=== PATIENT | male | born 1990 | race Caucasian/White ===

== ENCOUNTER 2021-08-05 07:38 | Emergency (ER) | payer MEDICAID, SELFPAY ==
[2021-08-05 08:09] VITALS: BP 122/79; PULSE 104; RESP 20; TEMP 37.5; O2SAT 100; BMI 39.3
--- NOTE | 2021-08-05 08:37 | ED_ITS ---
HPI - Nausea/Vomiting/Diarrhea General Chief complaint: Nausea/Vomiting/Diarrhea Stated complaint: vomiting diarrhea Time Seen by Provider: 08/05/21 08:13 Source: patient Mode of arrival: ambulatory Limitations: no limitations History of Present Illness HPI Narrative: 31-year-old male previously healthy here with reports of vomiting and diarrhea with associated abdominal cramping since last evening. Patient denies any fevers, chills, urinary symptoms, shortness of breath, chest pain. Patient has received COVID vaccine x2. He is not vaccinated for flu. No recent sick contacts, no recent travel. Associated nausea: Yes Related Data Previous Rx's Medication Instructions Recorded dicyclomine 10 mg capsule 10 mg PO TID PRN #15 cap 08/05/21 ondansetron 4 mg disintegrating 4 mg PO Q6H PRN #10 tab 08/05/21 tablet Allergies Allergy/AdvReac Type Severity Reaction Status Date / Time No Known Allergies Allergy Verified 08/05/21 08:14 Review of Systems Review of Systems: Yes all other systems are reviewed and are negative Constitutional: Constitutional: Reports no additional constitutional complaints, Denies body ache(s), Denies chills, Denies fever(s), Denies headache(s) and Denies weakness Eyes: Eyes: Reports no additional eye complaints and Denies change in vision ENT: Reports system reviewed and no additional complaints, except as documented, Denies dizziness, Denies headache(s), Denies nasal congestion, Denies nasal discharge and Denies neck pain Cardiovascular: Cardiovascular: Reports no additional cardiovascular complaints, Denies chest pain, Denies leg edema and Denies dyspnea Respiratory: Respiratory: Reports no additional respiratory complaints, Denies cough and Denies dyspnea Gastrointestinal: Gastrointestinal: Reports no additional gastrointestinal complaints, Reports abdominal pain, Reports diarrhea, Reports nausea and Reports vomiting Genitourinary: Genitourinary: Denies urinary incontinence Musculoskeletal: Musculoskeletal: Reports no additional musculoskeletal complaints, Denies back pain, Denies arthralgias, Denies joint swelling, Denies neck pain, Denies numbness and Denies tingling Integumentary/Breasts: Skin/Breast: Reports system reviewed and no additional complaints, except as docu and Denies rash Neurologic: Reports system reviewed and no additional complaints, except as documented, Denies Abnormal speech present, Denies dizziness, Denies headache(s), Denies numbness, Denies tingling and Denies weakness PMFSH Past Medical History Attestation statement: The following information was validated with the patient. Source: old records reviewed and nursing notes reviewed Medical History No known health problems Social History Social History Advance Directives: No Advance Directives Information Provided: No Physical Exam Vital Signs: Vital Signs: Last Vital Signs Temp 99.5 F 08/05/21 08:09 Pulse 104 H 08/05/21 08:09 Resp 20 08/05/21 08:09 BP 122/79 08/05/21 08:09 Pulse Ox 100 08/05/21 08:09 BMI result Body Mass Index 39.3 Const: General: cooperative, healthy appearing, comfortable and no acute distress Orientation/consciousness: patient oriented x3 Limitations: no limitations HEENT: Head: Yes normal to inspection Ears: hearing grossly normal bilaterally General nose exam: Normal external nose present Face and sin us: Yes normal facial exam Mouth: Normal oral and palatal mucosa present Throat: Yes posterior oropharynx normal Eyes: General: appearance normal, both eyes and all related structures Pupils: Equal, round and reactive pupils present Neck: Neck: Yes normal visual inspection, Yes full ROM, Yes no lymphadenopathy and Yes no meningeal signs Chest: Chest palpation & inspection: normal inspection of the chest Resp: Effort & Inspection: normal respiratory effort Auscultation: clear to auscultation bilaterally Cardio: Rate: regular rate Rhythm: regular rhythm Peripheral pulses: Peripheral pulses 2+ throughout GI: Inspection: Yes normal to inspection Palpation (GI): Soft to palpation and nontender Auscultation: normal bowel sounds Back/Spine/Pelvis: Thoracic/Lumbar Spine: thoracic and lumbar spine normal to inspection Skin: General skin exam: no rashes or lesions noted Neuro: General: patient oriented x3, no meningeal signs, no focal motor deficits and normal sensation to monofilament Cranial nerves: Yes Equal, round and reactive pupils present Cognition (Neuro): normal cognition Speech: No Abnormal speech present Gait exam (Neuro): Normal gait present Motor exam (neuro): 5/5 motor strength present throughout Extrem: General: Yes normal to inspection Course Course Course Narrative: 31-year-old male here with reports of vomiting and diarrhea with associated abdominal cramping since last evening. No focal abdominal pain on exam. Vitals are stable Patient reports inability to tolerate p.o.. Will check labs, UA, flu and COVID testing. Will give IV fluids, antiemetic and pain control and reassess 1000-Labs are unremarkable. FLU and COVID testing. Patient feeling improved. Tolerating PO. Likely viral gastroenteritis. Plan for discharge home. Reviewed worrisome signs and symptoms of when to return to the emergency department. Comfortable discharge home. MDM - Nausea/Vomiting/Diarrhea Medical Records Attestation: I reviewed the patient's medical records. Lab Data Attestation: I reviewed the patient's lab results. Result diagrams: 08/05/21 08:42 08/05/21 08:42 Labs: Lab Results 08/05/21 08/05/21 08/05/21 Range/Units 08:42 08:42 08:44 WBC 11.9 H (4.8-10.8) X10*3/uL RBC 5.02 (4.60-5.80) X10*6/uL Hgb 14.6 (14.0-18.0) g/dl Hct 42.8 (42.0-52.0) % MCV 85.3 (80.0-98.0) fL MCH 29.1 (27.0-33.0) pg MCHC 34.1 (31.0-36.0) g/dl RDW 12.3 (11.0-16.0) % Plt Count 206 (160-400) X10*3/uL MPV 9.3 L (9.4-12.4) fL Immature Gran % (Auto) 0.4 (0.0-0.4) % Neut % (Auto) 90.8 H (45-73) % Lymph % (Auto) 3.0 L (20-40) % [place] % (Auto) 5.3 (2-11) % Eos % (Auto) 0.4 (0-4) % Baso % (Auto) 0.1 (0-2) % Lymph # (Auto) 0.4 L (1.2-4.9) X10*3/uL [place] # (Auto) 0.6 (0.1-1.2) X10*3/uL Eos # (Auto) 0.1 (0.0-0.4) X10*3/uL Baso # (Auto) 0.0 (0.0-0.2) X10*3/uL Abs Immat Gran (auto) 0.05 H (0.00-0.03) X10*3/uL Absolute Neuts (auto) 10.8 H (2.0-8.3) x10*3/uL Absolute Nucleated RBC 0.000 (0.0-0.012) X10*3/uL Nucleated RBC % (auto) 0.0 (0.0-0.2) /100WBC Smear Tech's Comments VERIFIED Sodium 140 (135-145) mmol/L Potassium 4.3 (3.3-5.1) mmol/L Chloride 106 (96-108) mmol/L Carbon Dioxide 27 (22-29) mmol/L Anion Gap 11 L (12-20) BUN 12 (9-16) mg/dL Creatinine 0.84 (0.5-1.4) mg/dL Estim Creat Clear Calc 182.0 Estimated GFR > 60 Random Glucose 122 H (60-115) mg/dL Calcium 9.6 (8.4-10.2) mg/dL Magnesium 2.0 (1.6-2.6) mg/dL Total Bilirubin 0.5 (0.0-1.0) mg/dL Direct Bilirubin 0.2 (0.0-0.5) mg/dL AST 23 (5-37) U/L ALT 50 H (0-40) U/L Alkaline Phosphatase 47 (39-117) U/L Total Protein 7.3 (6.5-8.0) g/dL Albumin 4.6 (3.5-5.0) g/dL COVID-19 ([facility]EL) (Negative) COVID-19 Clin Com Influenza Type A ([facility]IRISH) Negative (Negative) Influenza Type B (GIRISH) Negative (Negative) Influenza A & B Note See Note 08/05/21 Range/Units 08:44 WBC (4.8-10.8) X10*3/uL RBC (4.60-5.80) X10*6/uL Hgb (14.0-18.0) g/dl Hct (42.0-52.0) % MCV (80.0-98.0) fL MCH (27.0-33.0) pg MCHC (31.0-36.0) g/dl RDW (11.0-16.0) % Plt Count (160-400) X10*3/uL MPV (9.4-12.4) fL Immature Gran % (Auto) (0.0-0.4) % Neut % (Auto) (45-73) % Lymph % (Auto) (20-40) % [place] % (Auto) (2-11) % Eos % (Auto) (0-4) % Baso % (Auto) (0-2) % Lymph # (Auto) (1.2-4.9) X10*3/uL [place] # (Auto) (0.1-1.2) X10*3/uL Eos # (Auto) (0.0-0.4) X10*3/uL Baso # (Auto) (0.0-0.2) X10*3/uL Abs Immat Gran (auto) (0.00-0.03) X10*3/uL Absolute Neuts (auto) (2.0-8.3) x10*3/uL Absolute Nucleated RBC (0.0-0.012) X10*3/uL Nucleated RBC % (auto) (0.0-0.2) /100WBC Smear Tech's Comments Sodium (135-145) mmol/L Potassium (3.3-5.1) mmol/L Chloride (96-108) mmol/L Carbon Dioxide (22-29) mmol/L Anion Gap (12-20) BUN (9-16) mg/dL Creatinine (0.5-1.4) mg/dL Estim Creat Clear Calc Estimated GFR Random Glucose (60-115) mg/dL Calcium (8.4-10.2) mg/dL Magnesium (1.6-2.6) mg/dL Total Bilirubin (0.0-1.0) mg/dL Direct Bilirubin (0.0-0.5) mg/dL AST (5-37) U/L ALT (0-40) U/L Alkaline Phosphatase (39-117) U/L Total Protein (6.5-8.0) g/dL Albumin (3.5-5.0) g/dL COVID-19 ([facility]EL) Negative (Negative) COVID-19 Clin Com See Note Influenza Type A ([facility]IR[facility]) (Negative) Influenza Type B (GIRISH) (Negative) Influenza A & B Note Discharge Plan Discharge Clinical Impression: Gastroenteritis Patient Disposition: Home, Self-Care Instructions: Gastroenteritis (DC) Prescriptions: New dicyclomine 10 mg capsule 10 mg PO TID PRN (Reason: abdominal discomfort) Qty: 15 0RF ondansetron 4 mg tablet,disintegrating 4 mg PO Q6H PRN (Reason: nausea and vomiting) Qty: 10 0RF Referrals: Physician,Nonstaff [Primary Care Provider] - 5 days (as needed) Stand Alone Forms: Work/School Release Interventions: ED Discharge Assessment Last Done: 08/05/21 10:11 Discharge Date/Time: 08/05/21 10:11
[2021-08-05 08:52] LABS: Basophils Percent Auto 0.1 % (0-2); Eosinophils Absolute Auto 0.1 X10*3/uL (0.0-0.4); Eosinophils Percent Auto 0.4 % (0-4); Hematocrit 42.8 % (42.0-52.0); Hemoglobin 14.6 g/dl (14.0-18.0); Imm Gran Abs Auto 0.05 X10*3/uL (0.00-0.03); Imm Gran Pct Auto 0.4 % (0.0-0.4); Lymphocytes Absolute Auto 0.4 X10*3/uL (1.2-4.9); MANUAL DIFF FLAG SCAN; Mean Corpuscular HGB Conc 34.1 g/dl (31.0-36.0); Mean Corpuscular Hemoglobin 29.1 pg (27.0-33.0); Mean Corpuscular Volume 85.3 fL (80.0-98.0); Mean Platelet Volume 9.3 fL (9.4-12.4); Monocytes Absolute Auto 0.6 X10*3/uL (0.1-1.2); Monocytes Percent Auto 5.3 % (2-11); Neutrophils Absolute Auto 10.8 x10*3/uL (2.0-8.3); Neutrophils Percent Auto 90.8 % (45-73); Platelet Count 206 X10*3/uL (160-400); Red Blood Count 5.02 X10*6/uL (4.60-5.80); Red Cell Distribution Width 12.3 % (11.0-16.0); SCAN SMEAR FLAG 1; White Blood Count 11.9 X10*3/uL (4.8-10.8)
[2021-08-05 09:06] LABS: IDNOW Serial# 08D9AD1C; Influenza A Negative (Negative)
[2021-08-05 09:07] LABS: Influenza B2 Negative (Negative)
[2021-08-05] MEDS: Ketorolac Tromethamine 30 MG/ML VIAL IVPUSH (09:09)
[2021-08-05] MEDS: 0.9 % Sodium Chloride 1,000 ML 999 ML IV (09:09)
[2021-08-05] MEDS: ondansetron HCL 4 MG/2 ML VIAL IVPUSH (09:09)
[2021-08-05 09:11] LABS: SLIDE REVIEW VERIFIED
[2021-08-05 09:13] LABS: Alanine Aminotransferase 50 U/L (0-40); Albumin Level 4.6 g/dL (3.5-5.0); Alkaline Phosphatase 47 U/L (39-117); Anion Gap 11 (12-20); Aspartate Amino Transferase 23 U/L (5-37); Bilirubin Direct 0.2 mg/dL (0.0-0.5); Bilirubin Total 0.5 mg/dL (0.0-1.0); Blood Urea Nitrogen 12 mg/dL (9-16); Calcium 9.6 mg/dL (8.4-10.2); Carbon Dioxide 27 mmol/L (22-29); Chloride 106 mmol/L (96-108); Estimated Glomerular Filt Rate > 60; Glucose Random 122 mg/dL (60-115); Potassium 4.3 mmol/L (3.3-5.1); Sodium 140 mmol/L (135-145); Total Protein 7.3 g/dL (6.5-8.0)
[2021-08-05 09:13] LABS: COVID-19 Test Negative (Negative)
== END 2021-08-05 10:11 | disposition home or self-care (01) ==
PROVIDERS: Nurse Practitioner Family; Emergency Provider Emergency Medicine
DX: K52.9 Noninfective gastroenteritis and colitis, unspecified (principal); Z20.822 Contact with and (suspected) exposure to COVID-19; R11.2 Nausea with vomiting, unspecified
CPT/HCPCS: 36415; 80048; 80076; 83735; 85025; 87502; 87635; 96361; 96374; 96375; 99284; J1885; J2405

== ENCOUNTER 2021-09-21 23:22 | Emergency (ER) | payer MEDICAID, SELFPAY ==
--- NOTE | 2021-09-21 | ECG_ITS ---
Test Reason : cp Blood Pressure : / mmHG Vent. Rate : 086 BPM Atrial Rate : 086 BPM P-R Int : 176 ms QRS Dur : 088 ms QT Int : 346 ms P-R-T Axes : 039 -06 024 degrees QTc Int : 414 ms Normal sinus rhythm Inferior infarct , age undetermined Abnormal ECG No previous ECGs available Referred By: Generic ED Physician Electronically Signed By:RUTH PINTO
--- NOTE | ~2021-09-21 | XR_ITS ---
EXAMINATION: XR CHEST CLINICAL INFORMATION: Shortness of breath COMPARISON: None TECHNIQUE: 2 views of the chest were obtained. FINDINGS: The lungs are well expanded. There is no focal consolidation, edema, or effusion. No pneumothorax. The cardiomediastinal silhouette is within normal limits. No acute osseous abnormality. XR/XR chest 2V IMPRESSION: Clear lungs.
[2021-09-21 23:33] VITALS: BP 113/63; PULSE 88; RESP 15; TEMP 36.1; O2SAT 93; BMI 41.5
[2021-09-22 00:48] LABS: Basophils Percent Auto 0.5 % (0-2); Eosinophils Absolute Auto 0.2 X10*3/uL (0.0-0.4); Eosinophils Percent Auto 2.7 % (0-4); Hematocrit 34.9 % (42.0-52.0); Hemoglobin 11.9 g/dl (14.0-18.0); Imm Gran Abs Auto 0.03 X10*3/uL (0.00-0.03); Imm Gran Pct Auto 0.5 % (0.0-0.4); Lymphocytes Absolute Auto 1.7 X10*3/uL (1.2-4.9); Lymphocytes Percent Auto 25.5 % (20-40); MANUAL DIFF FLAG NO; Mean Corpuscular HGB Conc 34.1 g/dl (31.0-36.0); Mean Corpuscular Hemoglobin 29.8 pg (27.0-33.0); Mean Corpuscular Volume 87.5 fL (80.0-98.0); Mean Platelet Volume 10.2 fL (9.4-12.4); Monocytes Absolute Auto 0.7 X10*3/uL (0.1-1.2); Monocytes Percent Auto 10.3 % (2-11); Neutrophils Percent Auto 60.5 % (45-73); Platelet Count 201 X10*3/uL (160-400); Red Blood Count 3.99 X10*6/uL (4.60-5.80); Red Cell Distribution Width 12.8 % (11.0-16.0); White Blood Count 6.6 X10*3/uL (4.8-10.8)
[2021-09-22 01:12] LABS: Alanine Aminotransferase 48 U/L (0-40); Albumin Level 4.1 g/dL (3.5-5.0); Alkaline Phosphatase 43 U/L (39-117); Anion Gap 10 (12-20); Aspartate Amino Transferase 25 U/L (5-37); Bilirubin Total 0.4 mg/dL (0.0-1.0); Blood Urea Nitrogen 12 mg/dL (9-16); Calcium 8.9 mg/dL (8.4-10.2); Carbon Dioxide 29 mmol/L (22-29); Chloride 106 mmol/L (96-108); Creatinine Clr Calc Pharmacy 169.2; Estimated Glomerular Filt Rate > 60; Glucose Random 110 mg/dL (60-115); Potassium 4.1 mmol/L (3.3-5.1); Sodium 141 mmol/L (135-145); Total Protein 6.7 g/dL (6.5-8.0)
[2021-09-22 01:19] LABS: B Type Natriuretic Peptide 13 pg/mL (<100); Troponin-I High Sensitivity < 3.5 ng/L (<3.5-35.0)
[2021-09-22 03:51] VITALS: BP 116/55; PULSE 57; RESP 16; O2SAT 96
--- NOTE | 2021-09-22 04:30 | ED.EXTPRO ---
HPI - Extremity Problem General Chief complaint: Extremity Problem Stated complaint: swollen legs/feet Time Seen by Provider: 09/22/21 04:28 Source: patient Mode of arrival: ambulatory History of Present Illness HPI Narrative: 31-year-old male without significant past medical history presents for increased bilateral ankle swelling for 1 day. Patient states that he was cleaning today when he noticed the swelling, he does complain of mild shortness of breath on exertion and intermittent sharp chest pain that is relieved by rubbing it. Otherwise he denies any fevers or chills Related Data Allergies Allergy/AdvReac Type Severity Reaction Status Date / Time No Known Allergies Allergy Verified 08/05/21 08:14 Review of Systems Review of Systems: Pertinent positives and negatives as stated in HPI 10 point review of systems otherwise negative. [facility] Past Medical History Source: nursing notes reviewed Medical History No known health problems Social History Social History Advance Directives: No Physical Exam Vital Signs: Vital Signs: Last Vital Signs Temp 97 F 09/21/21 23:33 Pulse 57 09/22/21 03:51 Resp 16 09/22/21 03:51 BP 116/55 L 09/22/21 03:51 Pulse Ox 96 09/22/21 03:51 BMI result Body Mass Index 41.5 VITAL SIGNS: Reviewed. GENERAL: Well developed, well nourished, in no acute distress. HEAD: Normocephalic/atraumatic EYES: PERRLA, EOMI EARS: Ext canals without abnormality, TMs non-bulging and non-erythematous NOSE: Nares patent bilateral OROPHARYNX: no oral lesions noted, posterior pharynx clear and non-erythematous without noted tonsillar enlargement/erythema/exudates NECK: Supple, no adenopathy LUNGS: Normal breath sounds. No adventitious sounds or accessory muscle use. SpO2<96> CARDIOVASCULAR: Regular rate and rhythm without noted murmurs, no JVD but bilateral ankle 2+ pitting edema ABDOMEN: Soft, non-tender, non-distended with bowel sounds. MUSCULOSKELETAL: No tenderness, deformities, or effusions noted on gross inspection. EXTREMITIES: No cyanosis, clubbing or edema. SKIN: Inspection of the skin reveals no rashes NEUROLOGIC: Alert and oriented x 4. Strength and sensation to light touch were grossly intact x 4. Course Course Course Narrative: 31-year-old male with history and clinical presentation mildly suggestive venous stasis related symmetrical swelling in lower extremities. Review of all investigations demonstrates a new normocytic anemia without associated complaints of bleeding and no obvious CKD/AUGUST. EKG and troponin as well as BNP are without acute findings. Although patient is PERC negative, will proceed with D-dimer. On review of all investigations is there is no evidence to suggest renal, VTE, cardiac, as a source for patient's symmetrical ankle swelling. I suspect that this is secondary to a combination of heat, poor circulation. Patient was provided with resultant instructed to follow-up with his primary care provider. MDM - Extremity (Nontraumatic) Lab Data Result diagrams: 09/22/21 00:40 09/22/21 00:40 Labs: Lab Results 09/22/21 09/22/21 09/22/21 Range/Units 00:40 00:40 00:40 WBC 6.6 (4.8-10.8) X10*3/uL RBC 3.99 L D (4.60-5.80) X10*6/uL Hgb 11.9 L (14.0-18.0) g/dl Hct 34.9 L (42.0-52.0) % MCV 87.5 (80.0-98.0) fL MCH 29.8 (27.0-33.0) pg MCHC 34.1 (31.0-36.0) g/dl RDW 12.8 (11.0-16.0) % Plt Count 201 (160-400) X10*3/uL MPV 10.2 (9.4-12.4) fL Immature Gran % (Auto) 0.5 H (0.0-0.4) % Neut % (Auto) 60.5 (45-73) % Lymph % (Auto) 25.5 (20-40) % [place] % (Auto) 10.3 (2-11) % Eos % (Auto) 2.7 (0-4) % Baso % (Auto) 0.5 (0-2) % Lymph # (Auto) 1.7 (1.2-4.9) X10*3/uL [place] # (Auto) 0.7 (0.1-1.2) X10*3/uL Eos # (Auto) 0.2 (0.0-0.4) X10*3/uL Baso # (Auto) 0.0 (0.0-0.2) X10*3/uL Abs Immat Gran (auto) 0.03 (0.00-0.03) X10*3/uL Absolute Neuts (auto) 4.0 (2.0-8.3) x10*3/uL Absolute Nucleated RBC 0.000 (0.0-0.012) X10*3/uL Nucleated RBC % (auto) 0.0 (0.0-0.2) /100WBC D-Dimer High Sensitivty NG/ML Sodium 141 (135-145) mmol/L Potassium 4.1 (3.3-5.1) mmol/L Chloride 106 (96-108) mmol/L Carbon Dioxide 29 (22-29) mmol/L Anion Gap 10 L (12-20) BUN 12 (9-16) mg/dL Creatinine 0.93 (0.5-1.4) mg/dL Estim Creat Clear Calc 169.2 Estimated GFR > 60 Random Glucose 110 (60-115) mg/dL Calcium 8.9 D (8.4-10.2) mg/dL Total Bilirubin 0.4 (0.0-1.0) mg/dL AST 25 (5-37) U/L ALT 48 H (0-40) U/L Alkaline Phosphatase 43 (39-117) U/L Troponin I High Sens < 3.5 (<3.5-35.0) ng/L B-Natriuretic Peptide 13 (<100) pg/mL Total Protein 6.7 (6.5-8.0) g/dL Albumin 4.1 (3.5-5.0) g/dL 09/22/21 Range/Units 04:34 WBC (4.8-10.8) X10*3/uL RBC (4.60-5.80) X10*6/uL Hgb (14.0-18.0) g/dl Hct (42.0-52.0) % MCV (80.0-98.0) fL MCH (27.0-33.0) pg MCHC (31.0-36.0) g/dl RDW (11.0-16.0) % Plt Count (160-400) X10*3/uL MPV (9.4-12.4) fL Immature Gran % (Auto) (0.0-0.4) % Neut % (Auto) (45-73) % Lymph % (Auto) (20-40) % [place] % (Auto) (2-11) % Eos % (Auto) (0-4) % Baso % (Auto) (0-2) % Lymph # (Auto) (1.2-4.9) X10*3/uL [place] # (Auto) (0.1-1.2) X10*3/uL Eos # (Auto) (0.0-0.4) X10*3/uL Baso # (Auto) (0.0-0.2) X10*3/uL Abs Immat Gran (auto) (0.00-0.03) X10*3/uL Absolute Neuts (auto) (2.0-8.3) x10*3/uL Absolute Nucleated RBC (0.0-0.012) X10*3/uL Nucleated RBC % (auto) (0.0-0.2) /100WBC D-Dimer High Sensitivty 151 NG/ML Sodium (135-145) mmol/L Potassium (3.3-5.1) mmol/L Chloride (96-108) mmol/L Carbon Dioxide (22-29) mmol/L Anion Gap (12-20) BUN (9-16) mg/dL Creatinine (0.5-1.4) mg/dL Estim Creat Clear Calc Estimated GFR Random Glucose (60-115) mg/dL Calcium (8.4-10.2) mg/dL Total Bilirubin (0.0-1.0) mg/dL AST (5-37) U/L ALT (0-40) U/L Alkaline Phosphatase (39-117) U/L Troponin I High Sens (<3.5-35.0) ng/L B-Natriuretic Peptide (<100) pg/mL Total Protein (6.5-8.0) g/dL Albumin (3.5-5.0) g/dL ECG Data Attestation EKG: I personally reviewed and interpreted this ECG as follows: Prior ECG tracings: not available for review Interpretation: NSR, HR-86, no STEMI, DC/QRS/QTC are within normal limits Discharge Plan Discharge Clinical Impression: Lower extremity edema Patient Disposition: Home, Self-Care Instructions: Leg Edema (ED) Additional Instructions: 1. Recommend caution with your salt intake, and also recommend starting to use compression stockings. 2. Please follow-up with your primary care provider for re-evaluation and further outpatient management. Return to the ER for acute worsening of symptoms.
[2021-09-22 04:45] LABS: D Dimer High Sensitivity 151 NG/ML
[2021-09-22 05:22] VITALS: BP 110/60; PULSE 65; RESP 18; TEMP 36.9; O2SAT 98
== END 2021-09-22 05:24 | disposition home or self-care (01) ==
PROVIDERS: Emergency Provider Student in an Organized Health Care Education/Training Program
DX: R60.0 Localized edema (principal); R06.02 Shortness of breath; R07.9 Chest pain, unspecified
CPT/HCPCS: 36415; 71046; 80053; 83880; 84484; 85025; 85379; 93005; 99283; 99284

== ENCOUNTER 2021-09-23 09:41 | Emergency (ER) | payer MEDICAID, SELFPAY ==
[2021-09-23 10:54] VITALS: BP 105/58; PULSE 77; RESP 16; TEMP 36.4; O2SAT 96; BMI 41.5
--- NOTE | 2021-09-23 23:36 | ED.GENADULT ---
HPI - General Adult General Chief complaint: General Medical Stated complaint: swollen foot 3days, history of heart issues Time Seen by Provider: 09/23/21 22:33 Source: patient Mode of arrival: ambulatory Limitations: no limitations History of Present Illness HPI narrative: This is a 31-year-old male medical history significant for obesity presenting to the emergency department with leg swelling x3 days. Patient tells me he was evaluated here was told he had lower extremity edema. He tells me that the reason he decided to come back in his his shoes and socks still do not fit. Patient has not been monitoring his diet well, still consuming salt, not wearing compression stockings. 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 Related Data Allergies Allergy/AdvReac Type Severity Reaction Status Date / Time No Known Allergies Allergy Verified 08/05/21 08:14 Review of Systems Review of Systems: Constitutional : No Weight loss, No Fever, No Chills, No Fatigue, No Malaise ENT/Mouth : No sore throat, No Rhinorrhea Eyes: No Eye Pain, No Swelling, No Redness Cardiovascular : No Chest Pain, No SOB, + Dyspnea on Exertion, No Orthopnea, + Edema, No Palpitations Respiratory : No Cough, No Sputum, No Wheezing Gastrointestinal : No Nausea, No Vomiting, No Diarrhea, No Constipation, No abdominal Pain, No Hematochezia, No Melena Genitourinary : No Dysuria, No Urinary Frequency, No Hematuria, Musculoskeletal : No joint pain, No Myalgias, No Joint Swelling Skin : No Skin Lesions, No rash Neuro : No Weakness, No Numbness, No Dizziness, No Headache Psych : No Anxiety/Panic, No Depression All other systems reviewed and are negative Yes all other systems are reviewed and are negative [facility] Past Medical History Attestation statement: The following information was validated with the patient. Source: old records reviewed and nursing notes reviewed Medical History No known health problems Social History Social History Advance Directives: No Advance Directives Information Provided: No Physical Exam ED Vital Signs: Vital Signs - 24 hr 09/23/21 10:54 09/23/21 23:40 09/24/21 00:16 Temperature 97.5 F 97.7 F Pulse Rate 77 58 Respiratory Rate 16 16 16 Blood Pressure 105/58 L 113/41 L Pulse Oximetry 96 96 96 BMI result Body Mass Index 41.5 Vital signs stable Appearance: Alert.? Oriented X3.? No acute distress.? Head: Normocephalic, atraumatic, no step-offs or deformities Eyes: Pupils equal, round and reactive to light.? ENT: Pharynx normal.? Neck: Normal inspection.? Neck supple.? CVS: Normal heart rate and rhythm.? Pulses normal.? Respiratory: No respiratory distress.? Breath sounds normal.? Abdomen: Soft and nontender.? Skin: Skin warm and dry.? Normal skin color.? Normal skin turgor.? Extremities: 2+ pitting edema from the ankle to the foot. No calf ttp, negative ernie b/l. 5/5 strength to bilateral upper and lower extremities Back: No midline tenderness, no C-spine tenderness, full range of motion, no CVA tenderness bilaterally Neuro: Oriented X 3.? No motor deficit.? No sensory deficit. CN 2-12 intact Course Reevaluation(s) Reevaluation #1: CBC around patient's baseline with a normocytic anemia, no electrolyte abnormalities requiring intervention, BNP less than 10. D-dimer negative, patient PERC negative unlikely DVT or PE. Patient's vital signs stable, no labored breathing. Patient tells me he is not short of breath, he tells me he has intermittent shortness of breath when he ambulates however this time he is denying shortness of breath. At this time patient will be discharged home, he was given a list of PCPs in the area to follow-up with. Advised him to watch his diet, ambulate/exercise if tolerated, and wear compression stockings. Advised him to return with new or worrisome signs and symptoms in outlined these on his discharge. Time: 00:24 Medical Decision Making [facility] Narrative Medical decision making narrative: [id number] 31-year-old male presenting with lower extremity swelling bilaterally and dyspnea on exertion x3 days. Physical examination significant for 2+ edema from the ankle down to the foot bilaterally, no calf tenderness to palpation, negative Ernie. Regular rate and rhythm. Lungs clear. Abdomen soft nontender nondistended. Neuro exam nonfocal. Vital signs are stable patient is saturating 96% on room air. Based off patient history and physical examination I do not suspect that this is CHF, PE. Likely asthma, venous stasis, deconditioning. Patient not complaining of chest pain unlikely ACS. Patient is PERC negative. Plan- labs Patient not complaining of chest pain no need for EKG or troponin patient also had these done yesterday and these were negative. Patient also had a negative chest x-ray yesterday. To noted appears as though patient was evaluated here yesterday for same symptoms. He had a negative workup including a negative troponin, BNP, D-dimer, normal EKG. He was discharged home with diagnosis of leg edema instructed to take caution with salt intake he was told to use compression stockings. And advised to follow-up with his PCP. Patient tells me he did not follow-up with his PCP because he does not have 1 therefore I gave him a list of PCPs in the area to take home with him Medical Records Medical records reviewed: Yes I reviewed the patient's medical records. Lab Data Lab results reviewed: Yes I reviewed the patient's lab results. Result diagrams: 09/23/21 23:49 09/23/21 23:49 Labs: Lab Results 09/23/21 09/23/21 09/23/21 Range/Units 23:38 23:38 23:49 WBC (4.8-10.8) X10*3/uL RBC (4.60-5.80) X10*6/uL Hgb (14.0-18.0) g/dl Hct (42.0-52.0) % MCV (80.0-98.0) fL MCH (27.0-33.0) pg MCHC (31.0-36.0) g/dl RDW (11.0-16.0) % Plt Count (160-400) X10*3/uL MPV (9.4-12.4) fL Immature Gran % (Auto) (0.0-0.4) % Neut % (Auto) (45-73) % Lymph % (Auto) (20-40) % Canadian % (Auto) (2-11) % Eos % (Auto) (0-4) % Baso % (Auto) (0-2) % Lymph # (Auto) (1.2-4.9) X10*3/uL Canadian # (Auto) (0.1-1.2) X10*3/uL Eos # (Auto) (0.0-0.4) X10*3/uL Baso # (Auto) (0.0-0.2) X10*3/uL Abs Immat Gran (auto) (0.00-0.03) X10*3/uL Absolute Neuts (auto) (2.0-8.3) x10*3/uL Absolute Nucleated RBC (0.0-0.012) X10*3/uL Nucleated RBC % (auto) (0.0-0.2) /100WBC D-Dimer High Sensitivty 170 NG/ML Sodium (135-145) mmol/L Potassium (3.3-5.1) mmol/L Chloride (96-108) mmol/L Carbon Dioxide (22-29) mmol/L Anion Gap (12-20) BUN (9-16) mg/dL Creatinine (0.5-1.4) mg/dL Estim Creat Clear Calc Estimated GFR Random Glucose (60-115) mg/dL Calcium (8.4-10.2) mg/dL Magnesium (1.6-2.6) mg/dL Total Bilirubin (0.0-1.0) mg/dL AST (5-37) U/L ALT (0-40) U/L Alkaline Phosphatase (39-117) U/L B-Natriuretic Peptide (<100) pg/mL Total Protein (6.5-8.0) g/dL Albumin (3.5-5.0) g/dL COVID-19 (EDEL) Negative (Negative) COVID-19 Clin Com See Note Influenza Type A (GIRISH) Negative (Negative) Influenza Type B (GIRISH) Negative (Negative) Influenza A & B Note See Note 09/23/21 09/23/21 09/23/21 Range/Units 23:49 23:49 23:49 WBC 6.5 (4.8-10.8) X10*3/uL RBC 4.13 L (4.60-5.80) X10*6/uL Hgb 12.2 L (14.0-18.0) g/dl Hct 35.3 L (42.0-52.0) % MCV 85.5 (80.0-98.0) fL MCH 29.5 (27.0-33.0) pg MCHC 34.6 (31.0-36.0) g/dl RDW 12.6 (11.0-16.0) % Plt Count 192 (160-400) X10*3/uL MPV 9.8 (9.4-12.4) fL Immature Gran % (Auto) 0.3 (0.0-0.4) % Neut % (Auto) 59.0 (45-73) % Lymph % (Auto) 27.8 (20-40) % Canadian % (Auto) 9.4 (2-11) % Eos % (Auto) 3.2 (0-4) % Baso % (Auto) 0.3 (0-2) % Lymph # (Auto) 1.8 (1.2-4.9) X10*3/uL Canadian # (Auto) 0.6 (0.1-1.2) X10*3/uL Eos # (Auto) 0.2 (0.0-0.4) X10*3/uL Baso # (Auto) 0.0 (0.0-0.2) X10*3/uL Abs Immat Gran (auto) 0.02 (0.00-0.03) X10*3/uL Absolute Neuts (auto) 3.9 (2.0-8.3) x10*3/uL Absolute Nucleated RBC 0.000 (0.0-0.012) X10*3/uL Nucleated RBC % (auto) 0.0 (0.0-0.2) /100WBC D-Dimer High Sensitivty NG/ML Sodium 138 (135-145) mmol/L Potassium 3.9 (3.3-5.1) mmol/L Chloride 106 (96-108) mmol/L Carbon Dioxide 25 (22-29) mmol/L Anion Gap 11 L (12-20) BUN 11 (9-16) mg/dL Creatinine 0.82 (0.5-1.4) mg/dL Estim Creat Clear Calc 191.9 Estimated GFR > 60 Random Glucose 86 (60-115) mg/dL Calcium 9.3 (8.4-10.2) mg/dL Magnesium 2.1 (1.6-2.6) mg/dL Total Bilirubin 0.7 (0.0-1.0) mg/dL AST 25 (5-37) U/L ALT 50 H (0-40) U/L Alkaline Phosphatase 44 (39-117) U/L B-Natriuretic Peptide < 10 (<100) pg/mL Total Protein 6.9 (6.5-8.0) g/dL Albumin 4.1 (3.5-5.0) g/dL COVID-19 (EDEL) (Negative) COVID-19 Clin Com Influenza Type A (GIRISH) (Negative) Influenza Type B (GIRISH) (Negative) Influenza A & B Note Critical Care Time Critical Care Time Critical Care Time: No Discharge Plan Discharge Clinical Impression: Bilateral edema of lower extremity Patient Disposition: Home, Self-Care Instructions: Leg Edema (ED) Additional Instructions: Take your medications as prescribed. Follow-up with your primary care provider this week. Follow-up with Cardiology if symptoms do not improve in a week or 2. Return to the emergency department with new or worsening symptoms. Such as fevers, chills, chest pain, shortness of breath, nausea, vomiting, dizziness, headache, vision changes, lethargy, weakness In case of emergency call 911 Additional Instructions: 1. Recommend caution with your salt intake, and also recommend starting to use compression stockings. 2. Please follow-up with your primary care provider for re-evaluation and further outpatient management. 3. Elevate your lower extremities when possible. On your visit on 09/22/2021- your labs showed a normocytic anemia, no acute electrolyte abnormalities, your troponin was negative, your BNP was within normal limits, you had a normal D-dimer, your chest x-ray was normal. On your visit today your labs showed a normocytic anemia, no acute electrolyte abnormalities, your BNP was within normal limits, your D-dimer was negative. Referrals: Physician,None [Primary Care Provider] - 2 days Jaylen Vasquez MD [Physician] - 2 days
[2021-09-23 23:40] VITALS: BP 113/41; PULSE 58; RESP 16; TEMP 36.5; O2SAT 96
[2021-09-23 23:54] LABS: Basophils Percent Auto 0.3 % (0-2); Eosinophils Absolute Auto 0.2 X10*3/uL (0.0-0.4); Eosinophils Percent Auto 3.2 % (0-4); Hematocrit 35.3 % (42.0-52.0); Hemoglobin 12.2 g/dl (14.0-18.0); Imm Gran Abs Auto 0.02 X10*3/uL (0.00-0.03); Imm Gran Pct Auto 0.3 % (0.0-0.4); Lymphocytes Absolute Auto 1.8 X10*3/uL (1.2-4.9); Lymphocytes Percent Auto 27.8 % (20-40); MANUAL DIFF FLAG NO; Mean Corpuscular HGB Conc 34.6 g/dl (31.0-36.0); Mean Corpuscular Hemoglobin 29.5 pg (27.0-33.0); Mean Corpuscular Volume 85.5 fL (80.0-98.0); Mean Platelet Volume 9.8 fL (9.4-12.4); Monocytes Absolute Auto 0.6 X10*3/uL (0.1-1.2); Monocytes Percent Auto 9.4 % (2-11); Neutrophils Absolute Auto 3.9 x10*3/uL (2.0-8.3); Platelet Count 192 X10*3/uL (160-400); Red Blood Count 4.13 X10*6/uL (4.60-5.80); Red Cell Distribution Width 12.6 % (11.0-16.0); White Blood Count 6.5 X10*3/uL (4.8-10.8)
[2021-09-24 00:13] LABS: B Type Natriuretic Peptide < 10 pg/mL (<100); D Dimer High Sensitivity 170 NG/ML
[2021-09-24 00:16] VITALS: RESP 16; O2SAT 96
[2021-09-24 00:16] LABS: Alanine Aminotransferase 50 U/L (0-40); Albumin Level 4.1 g/dL (3.5-5.0); Alkaline Phosphatase 44 U/L (39-117); Anion Gap 11 (12-20); Aspartate Amino Transferase 25 U/L (5-37); Bilirubin Total 0.7 mg/dL (0.0-1.0); Blood Urea Nitrogen 11 mg/dL (9-16); Calcium 9.3 mg/dL (8.4-10.2); Carbon Dioxide 25 mmol/L (22-29); Chloride 106 mmol/L (96-108); Creatinine Clr Calc Pharmacy 191.9; Estimated Glomerular Filt Rate > 60; Glucose Random 86 mg/dL (60-115); Magnesium 2.1 mg/dL (1.6-2.6); Potassium 3.9 mmol/L (3.3-5.1); Sodium 138 mmol/L (135-145); Total Protein 6.9 g/dL (6.5-8.0)
[2021-09-24 00:20] LABS: COVID-19 Test Negative (Negative); IDNOW Serial# 16C4AD1C; Influenza A Negative (Negative); Influenza B2 Negative (Negative)
[2021-09-24] MEDS: Albuterol Sulfate 90 MCG 8 GM INHALER 2 PUFF INHALE (00:49)
[2021-09-24 00:53] VITALS: PULSE 52; RESP 16; O2SAT 99
[2021-09-24 01:04] VITALS: BP 120/41; PULSE 52; RESP 16; TEMP 36.6; O2SAT 96
== END 2021-09-24 01:11 | disposition home or self-care (01) ==
LOC: HO.ED 09-24 00:37
PROVIDERS: Physician Assistant; Student in an Organized Health Care Education/Training Program; Emergency Provider Internal Medicine
DX: R60.0 Localized edema (principal); R06.02 Shortness of breath; Z20.822 Contact with and (suspected) exposure to COVID-19; Z79.899 Other long term (current) drug therapy
CPT/HCPCS: 36415; 80053; 83735; 83880; 85025; 85379; 87502; 87635; 94640; 99282; 99284

== ENCOUNTER 2021-10-13 10:38 | Emergency (ER) | payer MEDICAID, SELFPAY ==
--- NOTE | ~2021-10-13 | XR_ITS ---
EXAMINATION: XR TIBIA AND FIBULA, LEFT CLINICAL INFORMATION: Leg laceration. Question foreign body. COMPARISON: None TECHNIQUE: AP and lateral views of the left tibia and fibula were obtained. FINDINGS: There is no radiopaque foreign body seen in the left lateral leg. Visualized bones and soft tissues are normal. XR/XR tibia fibula LT 2V IMPRESSION: Unremarkable left tibia and fibula. No radiopaque foreign body seen.
[2021-10-13 10:53] VITALS: BP 103/79; PULSE 78; RESP 16; TEMP 37.2; O2SAT 96; BMI 40.0
--- NOTE | 2021-10-13 11:02 | ED_ITS ---
HPI - Wound/Laceration General Chief Complaint: Wound/Laceration Stated Complaint: L leg lac Time Seen by Provider: 10/13/21 11:01 Source: patient Mode of arrival: ambulatory Limitations: no limitations History of Present Illness HPI narrative: Patient presents emergency department for evaluation of a laceration to his left lower leg. He reports just prior to arrival he was taking out the trash and there is a piece of glass in the bag that cut his leg. No active bleeding. Reports pain 3/10. No numbness, no tingling. Reports last tetanus vaccine was greater than 5 years ago. Related Data Allergies Allergy/AdvReac Type Severity Reaction Status Date / Time No Known Allergies Allergy Verified 08/05/21 08:14 Review of Systems Review of Systems: Skin: Positive laceration to left lower leg Yes all other systems are reviewed and are negative PMFSH Past Medical History Attestation statement: The following information was validated with the patient. Source: old records reviewed Medical History No known health problems Physical Exam Vital Signs: Vital Signs: Last Vital Signs Temp 99.0 F 10/13/21 10:53 Pulse 78 10/13/21 10:53 Resp 16 10/13/21 10:53 BP 103/79 10/13/21 10:53 Pulse Ox 96 10/13/21 10:53 BMI result Body Mass Index 40.0 Vital signs have been reviewed as normal and appeared to be correct. Blood pressure normal.? Heart rate normal.? Respiration rate normal. Temperature normal.? Oxygen saturation normal. Appearance: Alert.?Oriented to person, place and time. No acute distress.?Normal affect. Eyes: Pupils equal, round and reactive to light.? ENT: Pharynx normal.?? Neck: Normal inspection.? Neck supple.?? CVS: Heart sounds normal. Normal heart rate and rhythm.? Pulses normal.?? Respiratory: No respiratory distress.? Lung sounds clear to auscultation bilaterally?? Abdomen: Soft and non-tender. ? Skin: Skin warm and dry.? Normal skin color.? Left lateral calf with 4 cm linear laceration, no active bleeding. Extremities: No lower extremity edema.? No calf ttp? Neuro: Moves all extremities spontaneously. Sensation intact bilaterally. No motor deficits. Ambulates with normal steady gait. Course Course Course Narrative: Patient is a 31-year-old male with no significant past medical history presenting to the emergency department for evaluation of a laceration. XR reveals no acute fracture, dislocation, or radiopaque body. Wound cleansed, it is well-approximated, laceration repair under aseptic technique with placement of 3 sutures, discussed reasons that he should return back to the emergency department. Advised to monitor for signs of infection. Sutures to be 8-10 days. Tdap was updated. Discharged home in stable condition, all questions were answered. [facility] - Wound/Laceration Medical Records Attestation: I reviewed the patient's medical records. Imaging Data XR LE: Radiologist's impression: FINDINGS: There is no radiopaque foreign body seen in the left lateral leg. Visualized bones and soft tissues are normal.? XR/XR tibia fibula LT 2V IMPRESSION: Unremarkable left tibia and fibula. No radiopaque foreign body seen. Procedures Laceration Laceration 1: Site: lower extremity Side (If applicable): left Size (cm): 4 Description: linear Depth: simple, single layer Local Anesthetic: lidocaine 2% Amount of anesthesia used (mL): 4 Pre-repair: wound explored and irrigated extensively Skin layer closed with: nylon Size (cm): 5-0 Number of sutures: 3 Technique: simple, interrupted Discharge Plan Discharge Clinical Impression: Laceration Patient Disposition: Home, Self-Care Instructions: Laceration (ED) Additional Instructions: Your tetanus vaccine was updated today. Sutures will need to be removed in 8-10 days. He should return to the emergency department if you develop fevers, chills, redness, swelling, drainage, severe worsening pain, or any additional symptoms or concerns. Interventions: ED Discharge Assessment Last Done: 10/13/21 12:32 Discharge Date/Time: 10/13/21 12:36
[2021-10-13] MEDS: Diphth,Pertus(ACell),Tet Adult 0.5 ML SYRINGE IM (11:19)
[2021-10-13] MEDS: Lidocaine HCl 1 % MPF 5 ML VIAL SUBCUT (11:25)
== END 2021-10-13 12:36 | disposition home or self-care (01) ==
PROVIDERS: Emergency Provider Student in an Organized Health Care Education/Training Program
DX: S81.812A Laceration without foreign body, left lower leg, initial encounter (principal); W25.XXXA Contact with sharp glass, initial encounter; Y93.E9 Activity, other interior property and clothing maintenance; Y92.039 Unspecified place in apartment as the place of occurrence of the external cause; Y99.9 Unspecified external cause status
CPT/HCPCS: 12002; 73590; 90471; 90715; 99284

== ENCOUNTER 2021-10-13 17:18 | Emergency (ER) | payer MEDICAID, SELFPAY ==
[2021-10-13 17:36] VITALS: BP 119/63; PULSE 86; RESP 20; TEMP 36.6; O2SAT 96; BMI 40.0
--- NOTE | 2021-10-13 22:31 | ED.GENADULT ---
HPI - General Adult General Chief complaint: Skin/Abscess/Foreign Body Stated complaint: leg cut, cyst Source: patient Mode of arrival: ambulatory Limitations: no limitations History of Present Illness HPI narrative: 31 yold male presents to the ED for suture coming off from left leg. Patient had sutures placed this morning and it popped open around 6:00pm. Patient secondary complain right jaw bump ingrown hair that is tender on palpation. patient states no weight loss, fever, chills, nausea, vomitting, weakness, neck swelling, fever, or chills Related Data Previous Rx's Medication Instructions Recorded cephalexin 500 mg capsule 500 mg PO QID 7 Days #28 cap 10/13/21 mupirocin 2 % topical ointment 1 appl TOPICAL TID 7 Days #22 g 10/13/21 Allergies Allergy/AdvReac Type Severity Reaction Status Date / Time No Known Allergies Allergy Verified 08/05/21 08:14 Review of Systems Review of Systems: left leg wound dehiscence and follictulitis Yes all other systems are reviewed and are negative PMFSH Past Medical History Medical History No known health problems Social History Social History Advance Directives: No Advance Directives Information Provided: No Physical Exam ED Vital Signs: Vital Signs - 24 hr 10/13/21 17:36 Temperature 97.8 F Pulse Rate 86 Respiratory Rate 20 Blood Pressure 119/63 Pulse Oximetry 96 BMI result Body Mass Index 40.0 Const General: cooperative, healthy appearing, comfortable, no acute distress, well developed, alert, awake and Physically active Orientation/consciousness: patient oriented x3 HENMT Head: Yes normal to inspection, Yes No palpable skull fracture present, Yes normocephalic, Yes atraumatic and No abrasion Head images: 1. small mass with ingrown hair that is erythamatous and tender, but non-fluctulant. Negative for pus draniage. Patient has very hairy full infante. NO neck swelling/submandibular swelling. No cervical lymphandeonapthy. Eyes General: appearance normal, both eyes and all related structures Neck Neck: Yes normal visual inspection, Yes full ROM, Yes no lymphadenopathy, Yes no meningeal signs, Yes trachea midline, Yes supple, No anterior neck swelling and No tender Chest Chest palpation & inspection: normal inspection of the chest and normal palpation of entire chest wall Resp Effort & Inspection: normal respiratory effort and able to speak in complete sentences Auscultation: clear to auscultation bilaterally Cardio Jugular venous distension: no JVD Heart sounds: S1 normal heart sound present and S2 normal heart sound present GI Inspection: Yes normal to inspection Palpation (GI): Soft to palpation, not firm, nontender, no guarding and not rigid General: No CVA tenderness and Yes no CVA tenderness Back/Spine/Pelvis Back: no CVA tenderness, No CVA tenderness and No back tenderness Skin Other: right jaw folliculitis Neuro General: patient oriented x3, gait normal, no meningeal signs and CN's II-XI intact bilaterally Cranial nerves: Yes CN's II-XII intact bilaterally Extrem General: Yes normal to inspection and Yes full ROM Ankle/foot/toe images: 1. wound dehiscence ( one suture missing). Two sutures in place. Wound is healthy looking and negative for any signs of infection. NO active bleeding Psych Appearance: grossly normal, well kempt and not disheveled Course Course Course Narrative: Wound dehiscence. Reevaluation(s) Reevaluation #1: Will place steri strip. no new suture indicated. Will discharg with muciporin and oral antibiotics. No susepcting retropharyngeal abscess, boom, or non hodgkins/hodgkins lymphoma. Patient safe for discharge Time: 22:40 Medical Decision Making MDM Narrative Medical decision making narrative: Wound dehiscence. FOllictulitis Discharge Plan Discharge Clinical Impression: Dehiscence of wound of skin, Folliculitis Patient Disposition: Home, Self-Care Instructions: Folliculitis (ED), Wound Dehiscence (ED) Additional Instructions: Recommend warm compress 4 times a day on folliculitis. Muciporin also placed on folliculitis. Return to the ED for any fever, chills, nausea, neck swelling, drooling, chest pain, shortness of breath, erythema, drooling, change in voice, weight loss, cervical lymphnodes, pus drainage, or any other concerning symptom. Please follow up with PCP. Placed Over the counter petrolatum ointment/petroleum jelly twice a day. Prescriptions: New cephalexin 500 mg capsule 500 mg PO QID 7 Days Qty: 28 0RF mupirocin 2 % ointment 1 appl topical TID 7 Days Qty: 22 0RF Stand Alone Forms: Work/School Release Discharge Date/Time: 10/13/21 23:19 Print Language: Ukrainian
== END 2021-10-13 23:19 | disposition home or self-care (01) ==
PROVIDERS: Emergency Provider Internal Medicine
DX: T81.33XD Disruption of traumatic injury wound repair, subsequent encounter (principal); Y82.8 Other medical devices associated with adverse incidents; L73.9 Follicular disorder, unspecified
CPT/HCPCS: 99283

== ENCOUNTER 2021-12-05 21:52 | Emergency (ER) | payer SELFPAY ==
--- NOTE | ~2021-12-05 | XR_ITS ---
EXAMINATION: XR CHEST CLINICAL INFORMATION: Chest wall pain. COMPARISON: Chest radiograph 09/22/2021. TECHNIQUE: 2 views of the chest were obtained. FINDINGS: Normal appearance of the cardiomediastinal silhouette. No focal airspace opacity, pleural effusion or pneumothorax. No evidence of acutely displaced rib fractures or acute osseous abnormality. XR/XR chest 2V IMPRESSION: No acute cardiopulmonary findings. No evidence of acutely displaced rib fractures. If rib fractures are highly suspected, recommend correlation with dedicated radiographic images of the rib cage with oblique views.
--- NOTE | 2021-12-05 21:53 | ECG_ITS ---
Test Reason : CHEST PAIN Blood Pressure : / mmHG Vent. Rate : 107 BPM Atrial Rate : 107 BPM P-R Int : 154 ms QRS Dur : 084 ms QT Int : 318 ms P-R-T Axes : 031 -25 027 degrees QTc Int : 424 ms Sinus tachycardia Inferior infarct (cited on or before 21-SEP-2021) Abnormal ECG When compared with ECG of 21-SEP-2021 23:37, No significant change was found Referred By: Generic ED Physician Electronically Signed By:RUTH PINTO
[2021-12-05 22:13] LABS: Basophils Percent Auto 0.2 % (0-2); Eosinophils Absolute Auto 0.2 X10*3/uL (0.0-0.4); Eosinophils Percent Auto 2.8 % (0-4); Hematocrit 38.5 % (42.0-52.0); Hemoglobin 13.4 g/dl (14.0-18.0); Imm Gran Abs Auto 0.04 X10*3/uL (0.00-0.03); Imm Gran Pct Auto 0.5 % (0.0-0.4); Lymphocytes Absolute Auto 2.2 X10*3/uL (1.2-4.9); Lymphocytes Percent Auto 26.6 % (20-40); MANUAL DIFF FLAG NO; Mean Corpuscular HGB Conc 34.8 g/dl (31.0-36.0); Mean Corpuscular Hemoglobin 29.6 pg (27.0-33.0); Mean Platelet Volume 9.5 fL (9.4-12.4); Monocytes Absolute Auto 0.8 X10*3/uL (0.1-1.2); Monocytes Percent Auto 9.7 % (2-11); Neutrophils Absolute Auto 5.1 x10*3/uL (2.0-8.3); Neutrophils Percent Auto 60.2 % (45-73); Platelet Count 238 X10*3/uL (160-400); Red Blood Count 4.53 X10*6/uL (4.60-5.80); Red Cell Distribution Width 12.6 % (11.0-16.0); White Blood Count 8.4 X10*3/uL (4.8-10.8)
[2021-12-05 22:38] VITALS: BP 113/63; PULSE 90; RESP 18; TEMP 36.9; O2SAT 95; BMI 47.8
[2021-12-05 22:39] LABS: Troponin-I High Sensitivity < 3.5 ng/L (<3.5-35.0)
[2021-12-05 22:44] LABS: Alanine Aminotransferase 44 U/L (0-40); Albumin Level 4.5 g/dL (3.5-5.0); Alkaline Phosphatase 51 U/L (39-117); Anion Gap 14 (12-20); Aspartate Amino Transferase 22 U/L (5-37); Bilirubin Total < 0.2 mg/dL (0.0-1.0); Blood Urea Nitrogen 13 mg/dL (9-16); Calcium 9.3 mg/dL (8.4-10.2); Carbon Dioxide 24 mmol/L (22-29); Chloride 104 mmol/L (96-108); Creatinine Clr Calc Pharmacy 200.5; Estimated Glomerular Filt Rate > 60; Glucose Random 92 mg/dL (60-115); Potassium 4.2 mmol/L (3.3-5.1); Sodium 138 mmol/L (135-145); Total Protein 7.2 g/dL (6.5-8.0)
--- NOTE | 2021-12-06 10:09 | ED.CHESTPAIN ---
HPI - Chest Pain General Chief Complaint: Upper Respiratory Symptoms Stated Complaint: chest pain Time Seen by Provider: 12/06/21 10:07 Source: patient Mode of arrival: ambulatory History of Present Illness HPI narrative: 31-year-old male who presents with sharp, midsternal chest pain which worsens with deep inspiration it started last night. Patient states that is still present and has not been associated with any fever, chills, shortness of breath, new cough or sore throat. Related Data Previous Rx's Medication Instructions Recorded cephalexin 500 mg capsule 500 mg PO QID 7 days #28 caps 10/13/21 mupirocin 2 % topical ointment 1 appl topical TID 7 days #22 grams 10/13/21 Allergies Allergy/AdvReac Type Severity Reaction Status Date / Time No Known Allergies Allergy Verified 08/05/21 08:14 Review of Systems Review of Systems: Pertinent positives and negatives as stated in HPI 10 point review of systems otherwise negative. PMFSH Past Medical History Source: nursing notes reviewed Medical History No known health problems Social History Social History Advance Directives: No Advance Directives Information Provided: Yes Physical Exam Vital Signs: Vital Signs: Last Vital Signs Temp 98.4 F 12/05/21 22:38 Pulse 90 12/05/21 22:38 Resp 18 12/05/21 22:38 BP 113/63 12/05/21 22:38 Pulse Ox 95 12/05/21 22:38 O2 Del Method 12/05/21 22:38 BMI result Body Mass Index 47.8 VITAL SIGNS: Reviewed. GENERAL: Well developed, well nourished, in no acute distress. HEAD: Normocephalic/atraumatic EYES: PERRLA, EOMI EARS: Ext canals without abnormality OROPHARYNX: no oral lesions noted, posterior pharynx clear LUNGS: Normal breath sounds. No adventitious sounds or accessory muscle use. SpO2<95>; CHEST WALL: No pain on palpation or deformities or crepitus noted. CARDIOVASCULAR: Regular rate and rhythm without noted murmurs, no JVD or lower extremity edema. ABDOMEN: Soft, non-tender, non-distended with bowel sounds. MUSCULOSKELETAL: No tenderness, deformities, or effusions noted on gross inspection. EXTREMITIES: No cyanosis, clubbing or edema. SKIN: Inspection of the skin reveals no rashes NEUROLOGIC: Alert and oriented x 4. Strength and sensation to light touch were grossly intact x 4. Course Course Course Narrative: 31-year-old male with history and clinical presentation mildly suggestive of acid reflux and on review of all investigations no evidence to suggest cardiopulmonary etiology. Patient is PERC negative. MDM - Chest Pain Lab Data Result diagrams: 12/05/21 22:05 12/05/21 22:05 Labs: Lab Results 12/05/21 12/05/21 12/05/21 Range/Units 22:05 22:05 22:05 WBC 8.4 (4.8-10.8) X10*3/uL RBC 4.53 L (4.60-5.80) X10*6/uL Hgb 13.4 L (14.0-18.0) g/dl Hct 38.5 L (42.0-52.0) % MCV 85.0 (80.0-98.0) fL MCH 29.6 (27.0-33.0) pg MCHC 34.8 (31.0-36.0) g/dl RDW 12.6 (11.0-16.0) % Plt Count 238 (160-400) X10*3/uL MPV 9.5 (9.4-12.4) fL Immature Gran % (Auto) 0.5 H (0.0-0.4) % Neut % (Auto) 60.2 (45-73) % Lymph % (Auto) 26.6 (20-40) % [place] % (Auto) 9.7 (2-11) % Eos % (Auto) 2.8 (0-4) % Baso % (Auto) 0.2 (0-2) % Lymph # (Auto) 2.2 (1.2-4.9) X10*3/uL [place] # (Auto) 0.8 (0.1-1.2) X10*3/uL Eos # (Auto) 0.2 (0.0-0.4) X10*3/uL Baso # (Auto) 0.0 (0.0-0.2) X10*3/uL Abs Immat Gran (auto) 0.04 H (0.00-0.03) X10*3/uL Absolute Neuts (auto) 5.1 (2.0-8.3) x10*3/uL Absolute Nucleated RBC 0.000 (0.0-0.012) X10*3/uL Nucleated RBC % (auto) 0.0 (0.0-0.2) /100WBC Sodium 138 (135-145) mmol/L Potassium 4.2 (3.3-5.1) mmol/L Chloride 104 (96-108) mmol/L Carbon Dioxide 24 (22-29) mmol/L Anion Gap 14 (12-20) BUN 13 (9-16) mg/dL Creatinine 0.85 (0.5-1.4) mg/dL Estim Creat Clear Calc 200.5 Estimated GFR > 60 Random Glucose 92 (60-115) mg/dL Calcium 9.3 (8.4-10.2) mg/dL Total Bilirubin < 0.2 (0.0-1.0) mg/dL AST 22 (5-37) U/L ALT 44 H (0-40) U/L Alkaline Phosphatase 51 (39-117) U/L Troponin I High Sens < 3.5 (<3.5-35.0) ng/L Total Protein 7.2 (6.5-8.0) g/dL Albumin 4.5 (3.5-5.0) g/dL Discharge Plan Discharge Clinical Impression: Atypical chest pain, Costochondritis Patient Disposition: Home, Self-Care Instructions: Chest Pain (ED), Costochondritis (ED), Chest Wall Pain (ED) Additional Instructions: 1. Resume all home medications as prescribed. Recommend [id number] Tylenol/ibuprofen as needed pain as this is likely an inflammation of the rib lining. 2. Follow-up with primary care provider in the next 1-2 days for re-evaluation and further outpatient workup and management. Return to the ER for worsening symptoms. Prescriptions: No Action cephalexin 500 mg capsule 500 mg PO QID 7 Days Qty: 28 0RF mupirocin 2 % ointment 1 appl topical TID 7 Days Qty: 22 0RF Stand Alone Forms: Work/School Release
[2021-12-06] MEDS: Ketorolac Tromethamine 15 MG/ML VIAL IM (11:00)
[2021-12-06] MEDS: Lidocaine HCl Viscous 2 % 15 ML SOLUTION 10 ML MUCOUS MEM (11:01)
[2021-12-06] MEDS: Magnesium Hydrox/Alum Hydrox 30 ML ORAL.SUSP PO (11:01)
== END 2021-12-06 11:03 | disposition home or self-care (01) ==
PROVIDERS: Emergency Provider Student in an Organized Health Care Education/Training Program
DX: R07.89 Other chest pain (principal); M94.0 Chondrocostal junction syndrome [Tietze]
CPT/HCPCS: 36415; 71046; 80053; 84484; 85025; 93005; 96372; 99284; J1885

== ENCOUNTER 2022-06-05 16:36 | Emergency (ER) | payer OTHER, SELFPAY ==
--- NOTE | ~2022-06-05 | XR_ITS ---
EXAMINATION: CHEST 2 VIEWS CLINICAL INFORMATION: cp . COMPARISON: 12/06/2021. TECHNIQUE: PA and lateral views of the chest obtained. FINDINGS: The lungs are well expanded. No focal infiltrate, effusion, edema, or pneumothorax. Cardiac and mediastinal silhouettes are within normal limits for technique. No acute bony abnormality seen XR/XR chest 2V IMPRESSION: No evidence of acute disease
--- NOTE | 2022-06-05 16:43 | ECG_ITS ---
Test Reason : CHEST PAIN Blood Pressure : / mmHG Vent. Rate : 094 BPM Atrial Rate : 094 BPM P-R Int : 158 ms QRS Dur : 084 ms QT Int : 336 ms P-R-T Axes : 054 -19 059 degrees QTc Int : 420 ms Normal sinus rhythm Cannot exclude old inferior infarct, but can be normal variant Oherwise normal EKG When compared with ECG of 05-DEC-2021 21:58, No significant changes seen Referred By: Generic ED Physician Electronically Signed By:RUTH PINTO
[2022-06-05 16:51] VITALS: BP 116/74; PULSE 96; RESP 18; TEMP 36.4; O2SAT 97; BMI 37.2
--- NOTE | 2022-06-05 17:16 | ED.CHESTPAIN ---
HPI - Chest Pain General Chief Complaint: Chest Pain <Paola Martin NP - Last Filed: 06/05/22 17:16> Stated Complaint: severe chest pain sob,dizziness <Paola Martin NP - Last Filed: 06/05/22 17:16> Time Seen by Provider: 06/05/22 19:21 <Paola Martin NP - Last Filed: 06/05/22 17:16> Source: patient <AMALIA Howard - Last Filed: 06/05/22 20:47> Mode of arrival: ambulatory <AMALIA Howard - Last Filed: 06/05/22 20:47> Limitations: no limitations <AMALIA Howard - Last Filed: 06/05/22 20:47> History of Present Illness HPI narrative: This is a 32-year-old male history of anxiety and panic attacks presenting to the emergency department with complaints of chest pain, shortness of breath since Thursday, 4 days ago. Patient reports left-sided chest pain, that is intermittent in nature, described as stabbing with varying intensities worsened by movement in certain house chores better at rest. Also reports shortness of breath both at rest and with exertion. He tells me has been worsening over the past 2 days. He tells me when he gets sharp pain he gets sweaty and dizzy. Denies fevers, chills, nausea, vomiting, recent sick contacts, headache, vision changes, weakness, abdominal pain, changes in bowel habits or urination. Denies drugs and alcohol. <AMALIA Howard - Last Filed: 06/05/22 20:47> Related Data Home Medications: Previous Rx's Medication Instructions Recorded cephalexin 500 mg capsule 500 mg PO QID 7 days #28 caps 10/13/21 mupirocin 2 % topical ointment 1 appl topical TID 7 days #22 grams 10/13/21 ketorolac 10 mg tablet 10 mg PO TID PRN pain 5 days #15 06/05/22 tabs <Paola Martin NP - Last Filed: 06/05/22 17:16> Allergies/Adverse Reactions: Allergies Allergy/AdvReac Type Severity Reaction Status Date / Time No Known Allergies Allergy Verified 08/05/21 08:14 <Paola Martin NP - Last Filed: 06/05/22 17:16> Review of Systems Review of Systems: Constitutional : No Weight loss, No Fever, No Chills, No Fatigue, No Malaise ENT/Mouth : No sore throat, No Rhinorrhea Eyes: No Eye Pain, No Swelling, No Redness Cardiovascular : + Chest Pain, + SOB, No Dyspnea on Exertion, No Orthopnea, No Edema, No Palpitations Respiratory : No Cough, No Sputum, No Wheezing Gastrointestinal : No Nausea, No Vomiting, No Diarrhea, No Constipation, No abdominal Pain, No Hematochezia, No Melena Genitourinary : No Dysuria, No Urinary Frequency, No Hematuria, Musculoskeletal : No joint pain, No Myalgias, No Joint Swelling Skin : No Skin Lesions, No rash Neuro : No Weakness, No Numbness, No Dizziness, No Headache Psych : No Anxiety/Panic, No Depression All other systems reviewed and are negative <AMALIA Howard - Last Filed: 06/05/22 20:47> Yes all other systems are reviewed and are negative <AMALIA Howard - Last Filed: 06/05/22 20:47> PMFSH Past Medical History Attestation statement: The following information was validated with the patient. <AMALIA Howard - Last Filed: 06/05/22 20:47> Source: old records reviewed and nursing notes reviewed <AMALIA Howard - Last Filed: 06/05/22 20:47> Medical History: Medical History No known health problems <Paola Martin NP - Last Filed: 06/05/22 17:16> Social History Social History: Social History Alcohol intake: current Alcohol intake frequency: a few times a month Alcohol type: hard liquor Smoked in Last 30 Days: No Use of substances other than those prescribed or required for medical reasons: No Advance Directives: No Advance Directives Information Provided: Yes <Paola Martin NP - Last Filed: 06/05/22 17:16> Physical Exam Vital Signs: Vital Signs: Last Vital Signs Temp 98.2 F 06/05/22 18:37 Pulse 80 06/05/22 19:36 Resp 12 06/05/22 19:36 BP 135/72 06/05/22 19:36 Pulse Ox 99 06/05/22 19:36 O2 Del Method 06/05/22 19:36 BMI result Body Mass Index 37.2 <Paola Martin NP - Last Filed: 06/05/22 17:16> Vital Signs: Last Vital Signs Temp 98.2 F 06/05/22 18:37 Pulse 80 06/05/22 19:36 Resp 12 06/05/22 19:36 BP 135/72 06/05/22 19:36 Pulse Ox 99 06/05/22 19:36 O2 Del Method 06/05/22 19:36 BMI result Body Mass Index 37.2 vss <AMALIA Howard - Last Filed: 06/05/22 20:47> Appearance: Alert.? Oriented X3.? No acute distress.? Head: Normocephalic, atraumatic, no step-offs or deformities Eyes: Pupils equal, round and reactive to light.? ENT: Pharynx normal.? Neck: Normal inspection.? Neck supple.? CVS: Normal heart rate and rhythm.? Pulses normal.? Respiratory: No respiratory distress.? Breath sounds normal.? Abdomen: Soft and nontender.? Skin: Skin warm and dry.? Normal skin color.? Normal skin turgor.? Extremities: No lower extremity edema.? No calf ttp, b/l ernie negative. 5/5 strength to bilateral upper and lower extremities Neuro: Oriented X 3.? No motor deficit.? No sensory deficit. CN 2-12 intact <AMALIA Howard - Last Filed: 06/05/22 20:47> Course Course Course Narrative: This rapid medical exam. Defer additional HPI, ROS, PE different provider. 32-year-old male with a history of panic attacks presents with 2 days of chest pain. Will obtain labs, EKG. VSS <Paola Martin NP - Last Filed: 06/05/22 17:16> Reevaluation(s) Reevaluation #1: CBC within normal limits. Chemistry with no acute findings requiring intervention, to note patient is transaminases noted to be elevated at 2:1 fashion. Troponin negative, EKG nonischemic. Serology negative for COVID-19. Chest x-ray unremarkable. Pending repeat troponin, D-dimer and influenza test. <AMALIA Howard - Last Filed: 06/05/22 20:47> Time: 19:44 <AMALIA Howard - Last Filed: 06/05/22 20:47> Reevaluation #2: Repeat trop negative EKG non ischemic. Dimer negative unlikley PE. Viral test negative. Patient w/ slight improvment however not resolved appears comfortable. VSs . Will discharge home with cardiology follow-up Educated patient on diagnosis and treatment plan, answered all question, patient verbalizes understanding. At this time patient will be discharged home, advised to return with new or worsening symptoms. Educated on worrisome signs and symptoms and when to return. At this time I feel comfortable discharge home. <AMALIA Howard - Last Filed: 06/05/22 20:47> Time: 20:46 <AMALIA Howard - Last Filed: 06/05/22 20:47> Medications Administered Discontinued Medications Generic Name Dose Route Start Last Admin Trade Name Freq PRN Reason Stop Dose Admin Ketorolac Tromethamine 30 mg 06/05/22 19:45 06/05/22 20:05 Ketorolac Tromethamine 30 Mg/Ml Vial IVPUSH 06/05/22 19:46 30 mg ONCE ONE Administration <Paola Martin NP - Last Filed: 06/05/22 17:16> Medications Administered Discontinued Medications Generic Name Dose Route Start Last Admin Trade Name Freq PRN Reason Stop Dose Admin Ketorolac Tromethamine 30 mg 06/05/22 19:45 06/05/22 20:05 Ketorolac Tromethamine 30 Mg/Ml Vial IVPUSH 06/05/22 19:46 30 mg ONCE ONE Administration <AMALIA Howard - Last Filed: 06/05/22 20:47> Medical Decision Making Medical Decision Making [facility] Narrative: 1938 32-year-old male presents with chest pain, shortness of breath, history of anxiety and panic attacks. Physical examination benign Likely anxiety/panic attacks. Unlikely ACS, PE, myocarditis, pericarditis, endocarditis, dissection. Will also rule out viral etiologies. Plan at this time labs, imaging, viral test, troponin, D-dimer. <AMALIA Howard - Last Filed: 06/05/22 20:47> Differential Diagnosis Differential Diagnoses: The differential diagnosis associated with the presentation includes <AMALIA Howard - Last Filed: 06/05/22 20:47> Likely anxiety/panic attacks. Unlikely ACS, PE, myocarditis, pericarditis, endocarditis, dissection. Will also rule out viral etiologies. <AMALIA Howard - Last Filed: 06/05/22 20:47> Admission/Observation Consideration of admission/observation: Escalation of care including admission/observation considered <AMALIA Howard - Last Filed: 06/05/22 20:47> Lab Data MDM Lab Attestation statement: I reviewed the patient's lab results. <AMALIA Howard - Last Filed: 06/05/22 20:47> Result Diagrams: 06/05/22 17:16 06/05/22 17:16 <Paola Martin NP - Last Filed: 06/05/22 17:16> Labs: Lab Results 06/05/22 06/05/22 06/05/22 Range/Units 17:16 17:16 17:50 WBC 8.9 (4.8-10.8) X10*3/uL RBC 5.26 (4.60-5.80) X10*6/uL Hgb 15.5 (14.0-18.0) g/dl Hct 44.9 (42.0-52.0) % MCV 85.4 (80.0-98.0) fL MCH 29.5 (27.0-33.0) pg MCHC 34.5 (31.0-36.0) g/dl RDW 12.6 (11.0-16.0) % Plt Count 264 (160-400) X10*3/uL MPV 9.7 (9.4-12.4) fL Immature Gran % (Auto) 0.3 (0.0-0.4) % Neut % (Auto) 71.4 (45-73) % Lymph % (Auto) 19.0 L (20-40) % Vernon % (Auto) 8.2 (2-11) % Eos % (Auto) 0.8 (0-4) % Baso % (Auto) 0.3 (0-2) % Lymph # (Auto) 1.7 (1.2-4.9) X10*3/uL Vernon # (Auto) 0.7 (0.1-1.2) X10*3/uL Eos # (Auto) 0.1 (0.0-0.4) X10*3/uL Baso # (Auto) 0.0 (0.0-0.2) X10*3/uL Abs Immat Gran (auto) 0.03 (0.00-0.03) X10*3/uL Absolute Neuts (auto) 6.4 (2.0-8.3) x10*3/uL Absolute Nucleated RBC 0.000 (0.0-0.012) X10*3/uL Nucleated RBC % (auto) 0.0 (0.0-0.2) /100WBC D-Dimer High Sensitivty NG/ML Sodium 141 (135-145) mmol/L Potassium 4.5 (3.3-5.1) mmol/L Chloride 105 (96-108) mmol/L Carbon Dioxide 27 (22-29) mmol/L Anion Gap 14 (12-20) BUN 10 (9-16) mg/dL Creatinine 0.85 (0.5-1.4) mg/dL Estim Creat Clear Calc 168.2 Estimated GFR > 60 Random Glucose 97 (60-115) mg/dL Calcium 10.1 D (8.4-10.2) mg/dL Total Bilirubin 0.4 (0.0-1.0) mg/dL Direct Bilirubin 0.2 (0.0-0.5) mg/dL AST 48 H (5-37) U/L ALT 132 H (0-40) U/L Alkaline Phosphatase 54 (39-117) U/L Troponin I High Sens < 3.5 (<3.5-35.0) ng/L Total Protein 7.6 (6.5-8.0) g/dL Albumin 4.9 (3.5-5.0) g/dL COVID-19 (EDEL) (Negative) COVID-19 Clin Com Influenza Type A (GIRISH) (Negative) Influenza Type B (GIRISH) (Negative) Influenza A & B Note 06/05/22 06/05/22 06/05/22 Range/Units 17:50 19:53 19:53 WBC (4.8-10.8) X10*3/uL RBC (4.60-5.80) X10*6/uL Hgb (14.0-18.0) g/dl Hct (42.0-52.0) % MCV (80.0-98.0) fL MCH (27.0-33.0) pg MCHC (31.0-36.0) g/dl RDW (11.0-16.0) % Plt Count (160-400) X10*3/uL MPV (9.4-12.4) fL Immature Gran % (Auto) (0.0-0.4) % Neut % (Auto) (45-73) % Lymph % (Auto) (20-40) % Vernon % (Auto) (2-11) % Eos % (Auto) (0-4) % Baso % (Auto) (0-2) % Lymph # (Auto) (1.2-4.9) X10*3/uL Vernon # (Auto) (0.1-1.2) X10*3/uL Eos # (Auto) (0.0-0.4) X10*3/uL Baso # (Auto) (0.0-0.2) X10*3/uL Abs Immat Gran (auto) (0.00-0.03) X10*3/uL Absolute Neuts (auto) (2.0-8.3) x10*3/uL Absolute Nucleated RBC (0.0-0.012) X10*3/uL Nucleated RBC % (auto) (0.0-0.2) /100WBC D-Dimer High Sensitivty < 150 NG/ML Sodium (135-145) mmol/L Potassium (3.3-5.1) mmol/L Chloride (96-108) mmol/L Carbon Dioxide (22-29) mmol/L Anion Gap (12-20) BUN (9-16) mg/dL Creatinine (0.5-1.4) mg/dL Estim Creat Clear Calc Estimated GFR Random Glucose (60-115) mg/dL Calcium (8.4-10.2) mg/dL Total Bilirubin (0.0-1.0) mg/dL Direct Bilirubin (0.0-0.5) mg/dL AST (5-37) U/L ALT (0-40) U/L Alkaline Phosphatase (39-117) U/L Troponin I High Sens < 3.5 (<3.5-35.0) ng/L Total Protein (6.5-8.0) g/dL Albumin (3.5-5.0) g/dL COVID-19 (EDEL) Negative (Negative) COVID-19 Clin Com See Note Influenza Type A (GIRISH) (Negative) Influenza Type B (GIRISH) (Negative) Influenza A & B Note 06/05/22 Range/Units 19:53 WBC (4.8-10.8) X10*3/uL RBC (4.60-5.80) X10*6/uL Hgb (14.0-18.0) g/dl Hct (42.0-52.0) % MCV (80.0-98.0) fL MCH (27.0-33.0) pg MCHC (31.0-36.0) g/dl RDW (11.0-16.0) % Plt Count (160-400) X10*3/uL MPV (9.4-12.4) fL Immature Gran % (Auto) (0.0-0.4) % Neut % (Auto) (45-73) % Lymph % (Auto) (20-40) % Vernon % (Auto) (2-11) % Eos % (Auto) (0-4) % Baso % (Auto) (0-2) % Lymph # (Auto) (1.2-4.9) X10*3/uL Vernon # (Auto) (0.1-1.2) X10*3/uL Eos # (Auto) (0.0-0.4) X10*3/uL Baso # (Auto) (0.0-0.2) X10*3/uL Abs Immat Gran (auto) (0.00-0.03) X10*3/uL Absolute Neuts (auto) (2.0-8.3) x10*3/uL Absolute Nucleated RBC (0.0-0.012) X10*3/uL Nucleated RBC % (auto) (0.0-0.2) /100WBC D-Dimer High Sensitivty NG/ML Sodium (135-145) mmol/L Potassium (3.3-5.1) mmol/L Chloride (96-108) mmol/L Carbon Dioxide (22-29) mmol/L Anion Gap (12-20) BUN (9-16) mg/dL Creatinine (0.5-1.4) mg/dL Estim Creat Clear Calc Estimated GFR Random Glucose (60-115) mg/dL Calcium (8.4-10.2) mg/dL Total Bilirubin (0.0-1.0) mg/dL Direct Bilirubin (0.0-0.5) mg/dL AST (5-37) U/L ALT (0-40) U/L Alkaline Phosphatase (39-117) U/L Troponin I High Sens (<3.5-35.0) ng/L Total Protein (6.5-8.0) g/dL Albumin (3.5-5.0) g/dL COVID-19 (EDEL) (Negative) COVID-19 Clin Com Influenza Type A (GIRISH) Negative (Negative) Influenza Type B (GIRISH) Negative (Negative) Influenza A & B Note See Note <Paola Martin, [employer] - Last Filed: 06/05/22 17:16> Lab Results 06/05/22 06/05/22 06/05/22 Range/Units 17:16 17:16 17:50 WBC 8.9 (4.8-10.8) X10*3/uL RBC 5.26 (4.60-5.80) X10*6/uL Hgb 15.5 (14.0-18.0) g/dl Hct 44.9 (42.0-52.0) % MCV 85.4 (80.0-98.0) fL MCH 29.5 (27.0-33.0) pg MCHC 34.5 (31.0-36.0) g/dl RDW 12.6 (11.0-16.0) % Plt Count 264 (160-400) X10*3/uL MPV 9.7 (9.4-12.4) fL Immature Gran % (Auto) 0.3 (0.0-0.4) % Neut % (Auto) 71.4 (45-73) % Lymph % (Auto) 19.0 L (20-40) % Vernon % (Auto) 8.2 (2-11) % Eos % (Auto) 0.8 (0-4) % Baso % (Auto) 0.3 (0-2) % Lymph # (Auto) 1.7 (1.2-4.9) X10*3/uL Vernon # (Auto) 0.7 (0.1-1.2) X10*3/uL Eos # (Auto) 0.1 (0.0-0.4) X10*3/uL Baso # (Auto) 0.0 (0.0-0.2) X10*3/uL Abs Immat Gran (auto) 0.03 (0.00-0.03) X10*3/uL Absolute Neuts (auto) 6.4 (2.0-8.3) x10*3/uL Absolute Nucleated RBC 0.000 (0.0-0.012) X10*3/uL Nucleated RBC % (auto) 0.0 (0.0-0.2) /100WBC D-Dimer High Sensitivty NG/ML Sodium 141 (135-145) mmol/L Potassium 4.5 (3.3-5.1) mmol/L Chloride 105 (96-108) mmol/L Carbon Dioxide 27 (22-29) mmol/L Anion Gap 14 (12-20) BUN 10 (9-16) mg/dL Creatinine 0.85 (0.5-1.4) mg/dL Estim Creat Clear Calc 168.2 Estimated GFR > 60 Random Glucose 97 (60-115) mg/dL Calcium 10.1 D (8.4-10.2) mg/dL Total Bilirubin 0.4 (0.0-1.0) mg/dL Direct Bilirubin 0.2 (0.0-0.5) mg/dL AST 48 H (5-37) U/L ALT 132 H (0-40) U/L Alkaline Phosphatase 54 (39-117) U/L Troponin I High Sens < 3.5 (<3.5-35.0) ng/L Total Protein 7.6 (6.5-8.0) g/dL Albumin 4.9 (3.5-5.0) g/dL COVID-19 (EDEL) (Negative) COVID-19 Clin Com Influenza Type A (GIRISH) (Negative) Influenza Type B (GIRISH) (Negative) Influenza A & B Note 06/05/22 06/05/22 06/05/22 Range/Units 17:50 19:53 19:53 WBC (4.8-10.8) X10*3/uL RBC (4.60-5.80) X10*6/uL Hgb (14.0-18.0) g/dl Hct (42.0-52.0) % MCV (80.0-98.0) fL MCH (27.0-33.0) pg MCHC (31.0-36.0) g/dl RDW (11.0-16.0) % Plt Count (160-400) X10*3/uL MPV (9.4-12.4) fL Immature Gran % (Auto) (0.0-0.4) % Neut % (Auto) (45-73) % Lymph % (Auto) (20-40) % Vernon % (Auto) (2-11) % Eos % (Auto) (0-4) % Baso % (Auto) (0-2) % Lymph # (Auto) (1.2-4.9) X10*3/uL Vernon # (Auto) (0.1-1.2) X10*3/uL Eos # (Auto) (0.0-0.4) X10*3/uL Baso # (Auto) (0.0-0.2) X10*3/uL Abs Immat Gran (auto) (0.00-0.03) X10*3/uL Absolute Neuts (auto) (2.0-8.3) x10*3/uL Absolute Nucleated RBC (0.0-0.012) X10*3/uL Nucleated RBC % (auto) (0.0-0.2) /100WBC D-Dimer High Sensitivty < 150 NG/ML Sodium (135-145) mmol/L Potassium (3.3-5.1) mmol/L Chloride (96-108) mmol/L Carbon Dioxide (22-29) mmol/L Anion Gap (12-20) BUN (9-16) mg/dL Creatinine (0.5-1.4) mg/dL Estim Creat Clear Calc Estimated GFR Random Glucose (60-115) mg/dL Calcium (8.4-10.2) mg/dL Total Bilirubin (0.0-1.0) mg/dL Direct Bilirubin (0.0-0.5) mg/dL AST (5-37) U/L ALT (0-40) U/L Alkaline Phosphatase (39-117) U/L Troponin I High Sens < 3.5 (<3.5-35.0) ng/L Total Protein (6.5-8.0) g/dL Albumin (3.5-5.0) g/dL COVID-19 (EDEL) Negative (Negative) COVID-19 Clin Com See Note Influenza Type A (GIRISH) (Negative) Influenza Type B (GIRISH) (Negative) Influenza A & B Note 06/05/22 Range/Units 19:53 WBC (4.8-10.8) X10*3/uL RBC (4.60-5.80) X10*6/uL Hgb (14.0-18.0) g/dl Hct (42.0-52.0) % MCV (80.0-98.0) fL MCH (27.0-33.0) pg MCHC (31.0-36.0) g/dl RDW (11.0-16.0) % Plt Count (160-400) X10*3/uL MPV (9.4-12.4) fL Immature Gran % (Auto) (0.0-0.4) % Neut % (Auto) (45-73) % Lymph % (Auto) (20-40) % Vernon % (Auto) (2-11) % Eos % (Auto) (0-4) % Baso % (Auto) (0-2) % Lymph # (Auto) (1.2-4.9) X10*3/uL Vernon # (Auto) (0.1-1.2) X10*3/uL Eos # (Auto) (0.0-0.4) X10*3/uL Baso # (Auto) (0.0-0.2) X10*3/uL Abs Immat Gran (auto) (0.00-0.03) X10*3/uL Absolute Neuts (auto) (2.0-8.3) x10*3/uL Absolute Nucleated RBC (0.0-0.012) X10*3/uL Nucleated RBC % (auto) (0.0-0.2) /100WBC D-Dimer High Sensitivty NG/ML Sodium (135-145) mmol/L Potassium (3.3-5.1) mmol/L Chloride (96-108) mmol/L Carbon Dioxide (22-29) mmol/L Anion Gap (12-20) BUN (9-16) mg/dL Creatinine (0.5-1.4) mg/dL Estim Creat Clear Calc Estimated GFR Random Glucose (60-115) mg/dL Calcium (8.4-10.2) mg/dL Total Bilirubin (0.0-1.0) mg/dL Direct Bilirubin (0.0-0.5) mg/dL AST (5-37) U/L ALT (0-40) U/L Alkaline Phosphatase (39-117) U/L Troponin I High Sens (<3.5-35.0) ng/L Total Protein (6.5-8.0) g/dL Albumin (3.5-5.0) g/dL COVID-19 (EDEL) (Negative) COVID-19 Clin Com Influenza Type A (GIRISH) Negative (Negative) Influenza Type B (GIRISH) Negative (Negative) Influenza A & B Note See Note <AMALIA Howard - Last Filed: 06/05/22 20:47> Independent Interpretation I performed an independent interpretation of an: Plain X-Ray (Unremarkable) <AMALIA Howard Last Filed: 06/05/22 20:47> Radiology Impression Discussion of test interpretation with radiology: I have reviewed the radiologist's reading. <AMALIA Howard Last Filed: 06/05/22 20:47> Core Measures AMI core measures followed: Yes <AMALIA Howard Last Filed: 06/05/22 20:47> Measure exclusions: not indicated <AMALIA Howard - Last Filed: 06/05/22 20:47> Critical Care Time Critical Care Time Critical Care Time: No <AMALIA Howard - Last Filed: 06/05/22 20:47> Discharge Plan Discharge Clinical Impression: Chest pain, Shortness of breath <Paola Martin NP - Last Filed: 06/05/22 17:16> Patient Disposition: Home, Self-Care <Paola Martin NP - Last Filed: 06/05/22 17:16> Additional Instructions: Take your medications as prescribed. If you were prescribed antibiotics today, it is important that you take your medication to their entirety, do not skip any doses, do not finish them early. Follow-up with your primary care provider this week. Please follow-up with cardiology. Return to the emergency department with new or worsening symptoms. Such as fevers, chills, chest pain, shortness of breath, nausea, vomiting, dizziness, headache, vision changes, lethargy In case of emergency call 911 Toradol has been sent to your pharmacy, you tolerated this well in the department. Please take this as prescribed do not take this with ibuprofen, or other NSAIDs, do not mix this with alcohol. Side effects of this medication including increased risk for bleeding and possible kidney injury. <Paola Martin NP - Last Filed: 06/05/22 17:16> Prescriptions: New ketorolac 10 mg tablet 10 mg PO TID PRN (Reason: pain) 5 Days Qty: 15 0RF Rx Instructions: Tolerated IM in the department No Action cephalexin 500 mg capsule 500 mg PO QID 7 Days Qty: 28 0RF mupirocin 2 % ointment 1 appl topical TID 7 Days Qty: 22 0RF <Paola Martin NP - Last Filed: 06/05/22 17:16> [place]: [facility] [place] [place] [facility] [place] Group[place] - 1 day Sukhdeep Lopez PA [Primary Care Provider] - 2 days <Paola Martin NP - Last Filed: 06/05/22 17:16> Stand Alone Forms: Work/School Release <Paola Martin NP - Last Filed: 06/05/22 17:16>
[2022-06-05 17:21] LABS: MANUAL DIFF FLAG NO
[2022-06-05 17:24] LABS: Basophils Percent Auto 0.3 % (0-2); Eosinophils Absolute Auto 0.1 X10*3/uL (0.0-0.4); Eosinophils Percent Auto 0.8 % (0-4); Hematocrit 44.9 % (42.0-52.0); Hemoglobin 15.5 g/dl (14.0-18.0); Imm Gran Abs Auto 0.03 X10*3/uL (0.00-0.03); Imm Gran Pct Auto 0.3 % (0.0-0.4); Lymphocytes Absolute Auto 1.7 X10*3/uL (1.2-4.9); Mean Corpuscular HGB Conc 34.5 g/dl (31.0-36.0); Mean Corpuscular Hemoglobin 29.5 pg (27.0-33.0); Mean Corpuscular Volume 85.4 fL (80.0-98.0); Mean Platelet Volume 9.7 fL (9.4-12.4); Monocytes Absolute Auto 0.7 X10*3/uL (0.1-1.2); Monocytes Percent Auto 8.2 % (2-11); Neutrophils Absolute Auto 6.4 x10*3/uL (2.0-8.3); Neutrophils Percent Auto 71.4 % (45-73); Platelet Count 264 X10*3/uL (160-400); Red Blood Count 5.26 X10*6/uL (4.60-5.80); Red Cell Distribution Width 12.6 % (11.0-16.0); White Blood Count 8.9 X10*3/uL (4.8-10.8)
[2022-06-05 17:37] LABS: Alanine Aminotransferase 132 U/L (0-40); Albumin Level 4.9 g/dL (3.5-5.0); Alkaline Phosphatase 54 U/L (39-117); Anion Gap 14 (12-20); Aspartate Amino Transferase 48 U/L (5-37); Bilirubin Direct 0.2 mg/dL (0.0-0.5); Bilirubin Total 0.4 mg/dL (0.0-1.0); Blood Urea Nitrogen 10 mg/dL (9-16); Calcium 10.1 mg/dL (8.4-10.2); Carbon Dioxide 27 mmol/L (22-29); Chloride 105 mmol/L (96-108); Creatinine Clr Calc Pharmacy 168.2; Estimated Glomerular Filt Rate > 60; Glucose Random 97 mg/dL (60-115); Potassium 4.5 mmol/L (3.3-5.1); Sodium 141 mmol/L (135-145); Total Protein 7.6 g/dL (6.5-8.0)
[2022-06-05 18:16] LABS: COVID-19 Test Negative (Negative); IDNOW Serial# 16C4AD1C
[2022-06-05 18:20] LABS: Troponin-I High Sensitivity < 3.5 ng/L (<3.5-35.0)
[2022-06-05 18:37] VITALS: BP 132/78; PULSE 73; RESP 15; TEMP 36.8; O2SAT 94
--- NOTE | 2022-06-05 18:46 | PC.NURSE ---
Patient AOx 4 neuros intact complaint of chest pain starting on Thursday worse with activity. Patient denies exacerbation with palpation or breathing LS clear no distress noted. Patient has history of panic attack taking prozac. Will CTM
[2022-06-05 19:36] VITALS: BP 135/72; PULSE 80; RESP 12; O2SAT 99
--- NOTE | 2022-06-05 19:42 | PC.NURSE ---
This lyric writer assumed care of this PT at 1900. PT A&Ox4, reports 4/10 left sided chest pain. States feeling off since Thursday, today was folding laundry when pain started all of sudden. I started sweating, it was sharp pressure feeling. It worsens with movement . Provider at bedside. IV established. Blood work drawn and sent to lab.
[2022-06-05] MEDS: Ketorolac Tromethamine 30 MG/ML VIAL IVPUSH (20:05)
[2022-06-05 20:12] LABS: D Dimer High Sensitivity < 150 NG/ML
[2022-06-05 20:32] LABS: Troponin-I High Sensitivity < 3.5 ng/L (<3.5-35.0)
[2022-06-05 20:36] LABS: IDNOW Serial# 6674DD1D; Influenza A Negative (Negative); Influenza B2 Negative (Negative)
[2022-06-05 21:05] VITALS: BP 121/62; PULSE 79; RESP 15; TEMP 36.9; O2SAT 99
== END 2022-06-05 21:32 | disposition home or self-care (01) ==
PROVIDERS: Nurse Practitioner Family; Physician Assistant; Emergency Provider Emergency Medicine; PCP Physician Assistant Medical
DX: R07.89 Other chest pain (principal); R06.02 Shortness of breath; R42 Dizziness and giddiness; Z20.822 Contact with and (suspected) exposure to COVID-19; Z20.828 Contact with and (suspected) exposure to other viral communicable diseases; Z79.899 Other long term (current) drug therapy
CPT/HCPCS: 36415; 71046; 80048; 80076; 84484; 85025; 85379; 87502; 87635; 93005; 96374; 99284; 99285; J1885

== ENCOUNTER → 2022-06-18 13:34 | Outpatient (BNVA) | payer OTHER, SELFPAY | PROVIDERS: PCP Physician Assistant Medical; Referring Provider Physician Assistant Medical; Visit Provider Internal Medicine | DX: R07.2 Precordial pain (principal) | CPT/HCPCS: 99202 ==

== ENCOUNTER 2023-10-12 20:19 | Emergency (ER) | payer SELFPAY ==
--- NOTE | ~2023-10-12 | CT_ITS ---
EXAMINATION: CT HEAD WITHOUT CONTRAST CLINICAL INFORMATION: Neck pain and headache. COMPARISON: None available. TECHNIQUE: Contiguous axial imaging was performed from the skull base to vertex without intravenous administration of contrast. This CT examination was performed using dose optimization techniques as appropriate, variously including the following: *Automated exposure control *Adjustment of mA and/or kV according to patient size (this includes techniques or standardized protocols for targeted exams where dose is matched to indication/reason for exam; i.e. extremities or head) *Use of iterative reconstruction technique DLP: 708 mGy-cm FINDINGS: There is no acute intracranial hemorrhage or evidence of territorial infarction. No abnormal mass effect or midline shift is seen. [place]erson to white matter differentiation is well preserved. There is no abnormal attenuation within the brain parenchyma. The ventricles are normal in size. No extra-axial fluid collections are identified. The calvarium and scalp soft tissues are normal. The middle ear cavity and mastoid air cells are clear. There is mild mucosal thickening of the left sphenoid sinus chamber. CT/CT head/brain wo IV con IMPRESSION: No acute intracranial pathology.
[2023-10-12 20:34] VITALS: BP 117/56; PULSE 83; RESP 18; TEMP 37; O2SAT 96; BMI 36.3
--- NOTE | 2023-10-12 20:34 | ED_ITS ---
HPI - General Adult General Chief complaint: Headache Stated complaint: severe head pain x3 days Time Seen by Provider: 10/13/23 05:01 Source: patient Mode of arrival: ambulatory Limitations: no limitations History of Present Illness ED Provider: Dr. Kellie Li HPI narrative: Patient comes to the emergency room complaining of 3 days of posterior headache, states that the pain radiates from the bottom of his head towards the right eye. Patient denies visual changes, no actual eye pain. Patient denies neck rigidity, denies any injuries. Patient states that he took 1 tablet of Excedrin Related Data Home Medications ?Medication ?Instructions ?Recorded ?Confirmed fluoxetine 20 mg capsule 20 mg PO DAILY 06/18/22 06/18/22 hydroxyzine HCl 25 mg tablet 25 mg PO TID PRN anxiety 06/18/22 06/18/22 Previous Rx's ?Medication ?Instructions ?Recorded ketorolac 10 mg tablet 10 mg PO TID PRN pain 5 days #15 06/05/22 tabs cyclobenzaprine 10 mg tablet 10 mg PO TID PRN muscle spasm #7 10/13/23 tabs ketorolac 10 mg tablet 10 mg PO Q8H #7 tabs 10/13/23 Allergies Allergy/AdvReac Type Severity Reaction Status Date / Time No Known Allergies Allergy Verified 10/12/23 20:35 Review of Systems 2 Review of Systems: Constitutional : No Weight loss, No Fever, No Chills, No Night Sweats, No Fatigue, No Malaise ENT/Mouth : No Hearing loss, No Ear Pain, No Nasal Congestion, No Sinus Pain, No Hoarseness, No sore throat, No Rhinorrhea, No Swallowing Difficulty Eyes: No Eye Pain, No Swelling, No Redness, No Foreign Body, No Discharge, No Vision Changes Cardiovascular : No Chest Pain, No SOB, No Dyspnea on Exertion, No Orthopnea, No Edema, No Palpitations Respiratory : No Cough, No Sputum, No Wheezing, No Smoke Exposure, No Dyspnea Gastrointestinal : No Nausea, No Vomiting, No Diarrhea, No Constipation, No abdominal Pain, No Hematochezia, No Melena Genitourinary : no irregular bleeding, No Dysuria, No Urinary Frequency, No Hematuria, No Urinary Incontinence, No Urgency, No Flank Pain, No Urinary Flow Changes, No Hesitancy Musculoskeletal : No joint pain, No Myalgias, No Joint Swelling Skin : No Skin Lesions, No rash Neuro : No Weakness, No Numbness, No Paresthesias, No Loss of Consciousness, No Dizziness, complaining of posterior headache radiating towards the right eye Psych : No Anxiety/Panic, No Depression, No SI/HI/AH/VH, No Social Issues, Heme/Lymph: No Bruising, No Bleeding,No Lymphadenopathy Endocrine : No Polyuria, No Polydipsia, No Temperature Intolerance [facility] Past Medical History Medical History No known health problems Family History Family History (Updated 06/18/22 @ 13:44 by Isabella Red) Mother Bone disease Father Bipolar 1 disorder Social History Social History (Updated 06/18/22 @ 13:46 by Isabella Red) Alcohol intake: current Alcohol intake frequency: a few times a month Alcohol type: hard liquor Patient Tobacco Use Status: Former Tobacco user Tobacco use type: Cigarette Advance Directives: No Advance Directives Information Provided: Yes Physical Exam ED Vital Signs: Vital Signs - 24 hr 10/12/23 20:34 10/13/23 03:55 Temperature 98.6 F 98.3 F Pulse Rate 83 50 Respiratory Rate 18 16 Blood Pressure 117/56 L 101/58 L Pulse Oximetry 96 95 Oxygen Delivery Method Room Air Room Air BMI result Body Mass Index 36.3 Const Other: Appearance: Alert. Oriented X3. No acute distress. Well-appearing Eyes: Pupils equal, round and reactive to light. ENT: Pharynx normal. Neck: Normal inspection. Neck supple. No lymph nodes noted. No crepitus CVS: Normal heart rate and rhythm. Pulses normal. Normal S1 and S2 Respiratory: No respiratory distress. Breath sounds normal. No Wheezing. No rales Abdomen: Soft and nontender. No rigidity. No distention. Skin: Skin warm and dry. Normal skin color. Normal skin turgor. Extremities: No lower extremity edema. No Lacerations. No Rash Neuro: Oriented X 3. No motor deficit. No sensory deficit. Moving all extremities. No slurred speech. CN 2 through 12 grossly intact Psych: calm, cooperative, normal affect Course Course Course Narrative: RME, this is a rapid medical exam performed by Jorge Burch please refer to primary provider for complete H&P- 33 year old male presents for evaluation of posterior headache, neck pain. Symptoms started 3 days ago. His pain occasionally radiates to right eye and left [facility]. Patient appears well. Plan for labs, CT scan of the brain. Medical Decision Making Medical Decision Making [facility] Narrative: -my interpretation of labs, normal hematology and chemistry - my interpretation of CT scan: No intracranial bleed, no obvious abnormality. -radiology report, no acute findings -patient well appearing, neurologically intact -patient was giving a dose of IM Toradol and p.o. Reglan Differential Diagnosis Differential Diagnoses: The differential diagnosis associated with the presentation includes (Migraine, cluster headache, tension headache) Admission/Observation Consideration of admission/observation: Escalation of care including admission/observation considered (Given the patient's severity of symptoms none arrival, observation considered) Lab Data [facility] Lab Attestation statement: I reviewed the patient's lab results. 10/12/23 20:42 10/12/23 20:42 Labs: Lab Results 10/12/23 10/12/23 Range/Units 20:41 20:42 WBC 7.6 (4.8-10.8) X10*3/uL RBC 4.53 L (4.60-5.80) X10*6/uL Hgb 13.8 L (14.0-18.0) g/dl Hct 38.3 L (42.0-52.0) % MCV 84.5 (80.0-98.0) fL MCH 30.5 (27.0-33.0) pg MCHC 36.0 (31.0-36.0) g/dl RDW 12.5 (11.0-16.0) % Plt Count 247 (160-400) X10*3/uL MPV 9.7 (9.4-12.4) fL Immature Gran % (Auto) 0.4 (0.0-0.4) % Neut % (Auto) 59.9 (45-73) % Lymph % (Auto) 26.6 (20-40) % [place] % (Auto) 9.9 (2-11) % Eos % (Auto) 2.9 (0-4) % Baso % (Auto) 0.3 (0-2) % Lymph # (Auto) 2.0 (1.2-4.9) X10*3/uL [place] # (Auto) 0.8 (0.1-1.2) X10*3/uL Eos # (Auto) 0.2 (0.0-0.4) X10*3/uL Baso # (Auto) 0.0 (0.0-0.2) X10*3/uL Abs Immat Gran (auto) 0.03 (0.00-0.03) X10*3/uL Absolute Neuts (auto) 4.5 (2.0-8.3) x10*3/uL Absolute Nucleated RBC 0.000 (0.0-0.012) X10*3/uL Nucleated RBC % (auto) 0.0 (0.0-0.2) /100WBC ESR 13 (0-15) MM/HR Sodium 137 (135-145) mmol/L Potassium 4.2 (3.3-5.1) mmol/L Chloride 106 (96-108) mmol/L Carbon Dioxide 22 (22-29) mmol/L Anion Gap 13 (12-20) BUN 15 (9-16) mg/dL Creatinine 0.88 (0.5-1.4) mg/dL Estim Creat Clear Calc 158.8 Estimated GFR > 60 Random Glucose 101 (60-115) mg/dL Calcium 9.6 (8.4-10.2) mg/dL Total Bilirubin 0.4 (0.0-1.0) mg/dL AST 32 (5-37) U/L ALT 58 H (0-40) U/L Alkaline Phosphatase 44 (39-117) U/L Total Protein 7.4 (6.5-8.0) g/dL Albumin 4.6 (3.5-5.0) g/dL Lipase 45 (8-78) U/L Independent Interpretation I performed an independent interpretation of an: CT Scan Radiology Impression Discussion of test interpretation with radiology: I have reviewed the radiologist's reading. Radiologist Impression: FINDINGS: There is no acute intracranial hemorrhage or evidence of territorial infarction. No abnormal mass effect or midline shift is seen. Sanderson to white matter differentiation is well preserved. There is no abnormal attenuation within the brain parenchyma. The ventricles are normal in size. No extra-axial fluid collections are identified. The calvarium and scalp soft tissues are normal. The middle ear cavity and mastoid air cells are clear. There is mild mucosal thickening of the left sphenoid sinus chamber. CT/CT head/brain wo IV con IMPRESSION: No acute intracranial pathology. Critical Care Time Critical Care Time Critical Care Time: Yes Total Critical Care Time: 35 Attestation: I have personally provided critical care time. Time includes review of lab data, radiology results, discussion with consultants, and monitoring for potential decompensation. Intervention performed as documented. Discharge Plan Discharge Clinical Impression: Headache Patient Disposition: Home, Self-Care Instructions: Acute Headache (ED) Additional Instructions: Please follow-up with your primary care physician tomorrow. If you have any worsening or new symptoms, please return to the emergency room or call 911 Prescriptions: New cyclobenzaprine 10 mg tablet 10 mg PO TID PRN (Reason: muscle spasm) Qty: 7 0RF ketorolac 10 mg tablet 10 mg PO Q8H Qty: 7 0RF Rx Instructions: maximum total duration of 5 days from all oral, intranasal, or parenteral formulations No Action ketorolac 10 mg tablet 10 mg PO TID PRN (Reason: pain) 5 Days Qty: 15 0RF Rx Instructions: Tolerated IM in the department fluoxetine 20 mg capsule 20 mg PO DAILY hydroxyzine HCl 25 mg tablet 25 mg PO TID PRN (Reason: anxiety) Stand Alone Forms: Work/School Release Print Language: Romansh
[2023-10-12 20:46] LABS: MANUAL DIFF FLAG NO
[2023-10-12 20:47] LABS: Basophils Percent Auto 0.3 % (0-2); Eosinophils Absolute Auto 0.2 X10*3/uL (0.0-0.4); Eosinophils Percent Auto 2.9 % (0-4); Hematocrit 38.3 % (42.0-52.0); Hemoglobin 13.8 g/dl (14.0-18.0); Imm Gran Abs Auto 0.03 X10*3/uL (0.00-0.03); Imm Gran Pct Auto 0.4 % (0.0-0.4); Lymphocytes Percent Auto 26.6 % (20-40); Mean Corpuscular Hemoglobin 30.5 pg (27.0-33.0); Mean Corpuscular Volume 84.5 fL (80.0-98.0); Mean Platelet Volume 9.7 fL (9.4-12.4); Monocytes Absolute Auto 0.8 X10*3/uL (0.1-1.2); Monocytes Percent Auto 9.9 % (2-11); Neutrophils Absolute Auto 4.5 x10*3/uL (2.0-8.3); Neutrophils Percent Auto 59.9 % (45-73); Platelet Count 247 X10*3/uL (160-400); Red Blood Count 4.53 X10*6/uL (4.60-5.80); Red Cell Distribution Width 12.5 % (11.0-16.0); White Blood Count 7.6 X10*3/uL (4.8-10.8)
[2023-10-12 21:00] LABS: Alanine Aminotransferase 58 U/L (0-40); Albumin Level 4.6 g/dL (3.5-5.0); Alkaline Phosphatase 44 U/L (39-117); Anion Gap 13 (12-20); Aspartate Amino Transferase 32 U/L (5-37); Bilirubin Total 0.4 mg/dL (0.0-1.0); Blood Urea Nitrogen 15 mg/dL (9-16); Calcium 9.6 mg/dL (8.4-10.2); Carbon Dioxide 22 mmol/L (22-29); Chloride 106 mmol/L (96-108); Creatinine Clr Calc Pharmacy 158.8; Estimated Glomerular Filt Rate > 60; Glucose Random 101 mg/dL (60-115); Lipase 45 U/L (8-78); Potassium 4.2 mmol/L (3.3-5.1); Sodium 137 mmol/L (135-145); Total Protein 7.4 g/dL (6.5-8.0)
[2023-10-12 21:35] LABS: Erythrocyte Sedimentation Rate 13 MM/HR (0-15)
[2023-10-13 03:55] VITALS: BP 101/58; PULSE 50; RESP 16; TEMP 36.8; O2SAT 95
--- NOTE | 2023-10-13 05:06 | ED.HA ---
HPI - Headache General Chief Complaint: Headache Stated Complaint: severe head pain x3 days Time Seen by Provider: 10/13/23 05:01 Source: patient Mode of arrival: ambulatory Limitations: no limitations History of Present Illness ED Provider: Dr. Kellie Li Related Data Home Medications ?Medication ?Instructions ?Recorded ?Confirmed fluoxetine 20 mg capsule 20 mg PO DAILY 06/18/22 06/18/22 hydroxyzine HCl 25 mg tablet 25 mg PO TID PRN anxiety 06/18/22 06/18/22 Previous Rx's ?Medication ?Instructions ?Recorded ketorolac 10 mg tablet 10 mg PO TID PRN pain 5 days #15 06/05/22 tabs Allergies Allergy/AdvReac Type Severity Reaction Status Date / Time No Known Allergies Allergy Verified 10/12/23 20:35 [facility] Past Medical History Medical History No known health problems Family History Family History (Updated 06/18/22 @ 13:44 by Isabella Red) Mother Bone disease Father Bipolar 1 disorder Social History Social History (Updated 06/18/22 @ 13:46 by Isabella Red) Alcohol intake: current Alcohol intake frequency: a few times a month Alcohol type: hard liquor Patient Tobacco Use Status: Former Tobacco user Tobacco use type: Cigarette Advance Directives: No Advance Directives Information Provided: Yes Physical Exam Vital Signs: Vital Signs: Last Vital Signs Temp 98.3 F 10/13/23 03:55 Pulse 50 10/13/23 03:55 Resp 16 10/13/23 03:55 BP 101/58 L 10/13/23 03:55 Pulse Ox 95 10/13/23 03:55 O2 Del Method Room Air 10/13/23 03:55 BMI result Body Mass Index 36.3 Medical Decision Making Lab Data 10/12/23 20:42 10/12/23 20:42 Labs: Lab Results 10/12/23 10/12/23 Range/Units 20:41 20:42 WBC 7.6 (4.8-10.8) X10*3/uL RBC 4.53 L (4.60-5.80) X10*6/uL Hgb 13.8 L (14.0-18.0) g/dl Hct 38.3 L (42.0-52.0) % MCV 84.5 (80.0-98.0) fL MCH 30.5 (27.0-33.0) pg MCHC 36.0 (31.0-36.0) g/dl RDW 12.5 (11.0-16.0) % Plt Count 247 (160-400) X10*3/uL MPV 9.7 (9.4-12.4) fL Immature Gran % (Auto) 0.4 (0.0-0.4) % Neut % (Auto) 59.9 (45-73) % Lymph % (Auto) 26.6 (20-40) % [place] % (Auto) 9.9 (2-11) % Eos % (Auto) 2.9 (0-4) % Baso % (Auto) 0.3 (0-2) % Lymph # (Auto) 2.0 (1.2-4.9) X10*3/uL [place] # (Auto) 0.8 (0.1-1.2) X10*3/uL Eos # (Auto) 0.2 (0.0-0.4) X10*3/uL Baso # (Auto) 0.0 (0.0-0.2) X10*3/uL Abs Immat Gran (auto) 0.03 (0.00-0.03) X10*3/uL Absolute Neuts (auto) 4.5 (2.0-8.3) x10*3/uL Absolute Nucleated RBC 0.000 (0.0-0.012) X10*3/uL Nucleated RBC % (auto) 0.0 (0.0-0.2) /100WBC ESR 13 (0-15) MM/HR Sodium 137 (135-145) mmol/L Potassium 4.2 (3.3-5.1) mmol/L Chloride 106 (96-108) mmol/L Carbon Dioxide 22 (22-29) mmol/L Anion Gap 13 (12-20) BUN 15 (9-16) mg/dL Creatinine 0.88 (0.5-1.4) mg/dL Estim Creat Clear Calc 158.8 Estimated GFR > 60 Random Glucose 101 (60-115) mg/dL Calcium 9.6 (8.4-10.2) mg/dL Total Bilirubin 0.4 (0.0-1.0) mg/dL AST 32 (5-37) U/L ALT 58 H (0-40) U/L Alkaline Phosphatase 44 (39-117) U/L Total Protein 7.4 (6.5-8.0) g/dL Albumin 4.6 (3.5-5.0) g/dL Lipase 45 (8-78) U/L Discharge Plan Discharge Prescriptions: No Action ketorolac 10 mg tablet 10 mg PO TID PRN (Reason: pain) 5 Days Qty: 15 0RF Rx Instructions: Tolerated IM in the department fluoxetine 20 mg capsule 20 mg PO DAILY hydroxyzine HCl 25 mg tablet 25 mg PO TID PRN (Reason: anxiety) Print Language: Armenian
[2023-10-13] MEDS: Metoclopramide HCl 10 MG TABLET PO (05:11)
[2023-10-13] MEDS: Ketorolac Tromethamine 60 MG/2 ML VIAL IM (05:11)
[2023-10-13 05:39] VITALS: BP 105/54; PULSE 62; RESP 16; TEMP 36.7; O2SAT 96
--- OUTSIDE RECORDS SUMMARY | 2023-10-16 09:36 | XMS_ITS | Continuity of Care Document ---
Author Organization [facility] Address [address] [place] [id number]- Care Team Providers Care Carbonation Equipment Operator Name Role Phone Chapin Be MD Primary Care Physician Encounter [facility] Date(s): 08/27/23 - 09/26/23 [facility] [address] [place] [address]- [place] Allergies, Adverse Reactions, Alerts No Known Allergies Immunizations Given and Recorded Vaccine Date Status Refusal Reason tetanus/diphtheria/pertussis, acel(Tdap) 10/13/21 Recorded Medications FLUoxetine 20 mg oral capsule 20 mg, 1, capsule, By Mouth, Daily, # 90 capsule, Refills 1, Tot. Refills 1, Maintenance, 06/08/23 9:30:00 EST, Route to Pharmacy Electronically, [facility]/pharmacy #[id number], Partial fill upon patient requestif the prescription is for a schedule II opioid jamal... Start Date: 06/08/23 Stop Date: 12/05/23 Status: Ordered hydrOXYzine hydrochloride 25 mg oral tablet 1 tablet = 25 mg, By Mouth, 3 times a day, PRN Anxiety attacks, # 90 tablet, 3 Refills, Maintenance, 02/15/23 9:45:00 EDT, [id number], 183, cm, 02/16/23 8:39:00 EDT, Height, 137, kg, :21:00 EDT, Dry Weight Start Date: 02/15/23 Stop Date: 06/15/23 Status: Ordered Problem List Condition Confirmation Course Effective Dates Status Health [facility] Informant PTSD (post-traumatic stress disorder) Confirmed Active Severe obesity Confirmed Active Social History Social History Type Response Tobacco Use: smoked 3 cigarr ettes in entire life. Sex Patient Care team information Care Team Personnel Name: Chapin Be MD Position: S Physician - Primary Care Member Role: PCP Address: Address: [address] [place] [address], [place] [address]- Care Team Related Persons Name: MS GAYLE Address: home [address] [address]
--- OUTSIDE RECORDS SUMMARY | 2023-10-16 09:36 | XMS_ITS | Continuity of Care Document ---
Author Organization [facility] Address [address] [place] [address]- Care Team Providers Care Soil Technician Name Role Phone Sukhdeep Fleming Primary Care Physician Encounter [id number] Date(s): 07/21/22 - 08/20/22 [facility] [address] [place] [id number]- Attending Physician: Momo Amaya Admitting Physician: Momo Amaya Referring Physician: AdmtrMomo Allergies, Adverse Reactions, Alerts No Known Allergies Immunizations Given and Recorded Vaccine Date Status Refusal Reason tetanus/diphtheria/pertussis, acel(Tdap) 10/13/21 Recorded Medications FLUoxetine 20 mg oral capsule 1, capsule, By Mouth, Daily, STOP WELLBUTRIN BEFORE STARTING THIS MED. INS MAX 34, # 34 capsule, Refills 1, Maintenance, 06/23/22 14:09:00 EST, Route to Pharmacy Electronically, [id number], 183,cm, 05/15/22 8:13:00 EST, Height, 137, kg, 09/23/21... Start Date: 06/23/22 Stop Date: 08/02/22 Status: Ordered hydrOXYzine hydrochloride 25 mg oral tablet 1 tablet, By Mouth, 3 times a day, PRN NEEDED FOR ANXIETY FOR, # 90 tablet, 0 Refills, Maintenance, 07/28/22 7:24:00 EDT, [id number], 183, cm, 05/15/22 8:13:00 EST, Height, 137, kg, 09/23/21 0:21:00 EDT, Dry Weight Start Date: 07/28/22 Stop Date: 08/27/22 Status: Ordered Problem List Condition Confirmation Course Effective Dates Status Health [facility] Informant PTSD (post-traumatic stress disorder) Confirmed Active Moderate recurrent major depression Confirmed Active Severe obesity Confirmed Active Severe recurrent major depression Confirmed Active Social History Social History Type Response Tobacco Use: smoked 3 cigarr ettes in entire life. Sex Patient Care team information Care Team Personnel Name: Sukhdeep Fleming Position: [facility] PCO Associate Professional Member Role: PCP Address: Address: [address] [place] [id number]- Care Team Related Persons Name: MS GAYLE Address: home [address] [address]
--- OUTSIDE RECORDS SUMMARY | 2023-10-16 09:36 | XMS_ITS | Continuity of Care Document ---
Author Organization [facility] Address [address] [place], [place] [id number]- Care Team Providers Care Procedure Writer Name Role Phone Chapin Be MD Primary Care Physician Encounter [facility] Date(s): 02/16/23 - 02/23/23 [facility] [place] [phone]- [place] Encounter Diagnosis Major depressive disorder, recurrent(Discharge Diagnosis) - 02/16/23 PTSD (post-traumatic stress disorder)(Discharge Diagnosis) - 02/16/23 PAVAN (obstructive sleep apnea)(Discharge Diagnosis) - 02/16/23 Attending Physician: Chapin Be MD Allergies, Adverse Reactions, Alerts No Known Allergies Immunizations Given and Recorded Vaccine Date Status Refusal Reason tetanus/diphtheria/pertussis, acel(Tdap) 10/13/21 Recorded Medications FLUoxetine 20 mg oral capsule 20 mg, 1, capsule, By Mouth, Daily, # 90 capsule, Refills 1, Tot. Refills 1, Maintenance, 02/16/23 9:43:00 EDT, Route to Pharmacy Electronically, [facility]/pharmacy #[id number], Partial fill upon patient requestif the prescription is for a schedule II opioid jamal... Start Date: 02/16/23 Stop Date: 08/15/23 Status: Ordered FLUoxetine 20 mg oral capsule 1, capsule, By Mouth, Daily, STOP WELLBUTRIN BEFORE STARTING THIS MED. INS MAX 34, # 34 capsule, Refills 1, Maintenance, 09/09/22 7:31:00 EDT, Route to Pharmacy Electronically, [facility] [id number], 183, cm, 05/15/22 8:13:00 EST, Height, 137, kg, 09/23/21... Start Date: 09/09/22 Stop Date: 10/19/22 Status: Ordered hydrOXYzine hydrochloride 25 mg oral tablet 1 tablet, By Mouth, 3 times a day, PRN NEEDED FOR ANXIETY FOR, # 90 tablet, 0 Refills, Maintenance, 09/15/22 7:14:00 EDT, [id number], 183, cm, 05/15/22 8:13:00 EST, Height, 137, kg, 09/23/21 0:21:00 EDT, Dry Weight Start Date: 09/15/22 Stop Date: 10/15/22 Status: Ordered hydrOXYzine hydrochloride 25 mg oral tablet 1 tablet = 25 mg, By Mouth, 3 times a day, PRN Anxiety attacks, # 90 tablet, 3 Refills, Maintenance, 02/15/23 9:45:00 EDT, [id number], 183, cm, 02/16/23 8:39:00 EDT, Height, 137, kg, 220:21:00 EDT, Dry Weight Start Date: 02/15/23 Stop Date: 06/15/23 Status: Ordered Problem List Condition Confirmation Course Effective Dates Status Health St atus Informant PTSD (post-traumatic stress disorder) Confirmed Active Moderate recurrent major depression Confirmed Active Severe obesity Confirmed Active Severe recurrent major depression Confirmed Active Diagnosis Diagnosis Type Effective Dates Health Status Clinical Service Informant Major depressive disorder, recurrent Discharge Diagnosis 02/16/23 PTSD (post-traumatic stress disorder) Discharge Diagnosis 02/16/23 PAVAN (obstructive sleep apnea) Discharge Diagnosis 02/16/23 Vital Signs Most recent to oldest [Reference Range]: 1 Height 183 cm (02/16/23 8:39 AM) Social History Social History Type Response Tobacco Use: smoked 3 cigarr ettes in entire life. Sex Note * Kacie Kilpatrick MA: PERFORM, SIGN, VERIFY Event Display: Patient Education/Instruction Authored Date: [id number] [facility] *BMP Quab Adlt Med Bltn Clinical Summary Name SORAYA DELANEY Age 32 Years 1990 PCP Chapin Be MD PCP Visit Date 02/16/2023 08:40:00 Additional Instructions: Scheduled Appointments?? Future Appointments ?No Future Appointments Scheduled Follow-Up Instructions ?? Diagnosis Major depressive disorder, recurrent, unspecified; Obstructive sleep apnea (adult) (pediatric); Post-traumatic stress disorder, unspecified Medications: Please continue your medications until treatment is completed or stopped by your provider. Discuss any questions related to medications with your provider. Medications to Continue with No Changes [id number], [address] [place] [id number], [phone] Fluoxetine (FLUoxetine 20 mg oral capsule) 1 capsule Oral Daily for 90 Days. Refills: 1. Next Dose: HydrOXYzine (hydrOXYzine hydrochloride 25 mg oral tablet) 1 tab(s) Oral 3 times a day as needed Anxiety attacks for 30 Days. Refills: 3. Next Dose: These medications were not printed or sent to your pharmacy Fluoxetine (FLUoxetine 20 mg oral capsule) 1 capsule Oral Daily for 40 Days. STOP WELLBUTRIN BEFORESTARTING THIS MED. INS MAX 34. Refills: 1. Next Dose: HydrOXYzine (hydrOXYzine hydrochloride 25 mg oral tablet) 1 tab(s) Oral 3 times a day as needed NEEDED FOR ANXIETY FOR for 30 Days. Refills: 0. Next Dose: Allergy Info:?? NKA Medications Given This Visit Future Orders ?No future orders Vital Signs Height 183 cm Weight BMI Blood Pressure / Temperature Pulse Rate Respiratory Rate 02 Sat Mode of Delivery / You can now view a summary of your hospital visit from the comfort of your home through a free online portal called [employer]. [employer] is a website that allows you to securely view your medical information including discharge summary, medications and follow-up visits. ??You can alsosend a secure electronic message to your doctor???s office to request appointments, renew medications or just ask a question. You can enroll at [email or web address] or register during your next office visit. Disclaimer:?? The information provided is of a general nature and is intended to be used in conjunction with the recommendations and advice of your health care practitioner. ??Every effort has been made to ensure that the information provided is accurate and complete at the time it is provided to you however, as your needs change, or, as new ??information becomes available, different or additional instructions may be required. If you have questions, please consult with your primary care provider or pharmacist, as appropriate. ??This information is not intended to serve as substitution for assessment and evaluation by a qualified health care provider. If you do not have a primary care provider, you may find a [facility] provider by calling [facility] [employer] Link at [phone]. [facility], in keeping with [facility] guidance, no longer requires face masks for staff, patientsor visitors in most situations. Similar to time spent indoors at other locations, there is the chance that you were exposed to respiratory viruses during your time with us (such as flu or COVID-19).? If you develop symptoms concerning for a viral respiratory infection, please seek testing (and treatment if indicated) from your medical provider or home test kit. For information about the plan of care including goals and instructions for your diagnosis, please see the patient education orders section of this document. Patient Education Materials?? The content of this educational material or handout may have been modified, supplemented, or adapted from its original content and format to support your individualized medical care. Patient Care team information Care Team Personnel Name: Chapin Be MD Position: [facility] Physician - Primary Care Member Role: PCP Address: Address: [address] [facility], [place] [address]- Care Team Related Persons Name: MS GAYLE Address: home [address] [address]
--- OUTSIDE RECORDS SUMMARY | 2023-10-16 09:36 | XMS_ITS | Continuity of Care Document ---
Author Organization [facility] Address [address] [place] [address]- Care Team Providers Care Pharmaceutical Assistant Name Role Phone Sukhdeep Fleming Primary Care Physician Encounter [facility] Date(s): 07/17/22 - 08/16/22 [facility] [address] [place] [address] [place] Allergies, Adverse Reactions, Alerts No Known Allergies Immunizations Given and Recorded Vaccine Date Status Refusal Reason tetanus/diphtheria/pertussis, acel(Tdap) 10/13/21 Recorded Medications FLUoxetine 20 mg oral capsule 1, capsule, By Mouth, Daily, STOP WELLBUTRIN BEFORE STARTING THIS MED. INS MAX 34, # 34 capsule, Refills 1, Maintenance, 06/23/22 14:09:00 EST, Route to Pharmacy Electronically, [facility], 183,cm, 05/15/22 8:13:00 EST, Height, 137, kg, 09/23/21... Start Date: 06/23/22 Stop Date: 08/02/22 Status: Ordered hydrOXYzine hydrochloride 25 mg oral tablet 1 tablet, By Mouth, 3 times a day, PRN NEEDED FOR ANXIETY FOR, # 90 tablet, 0 Refills, Maintenance, 07/28/22 7:24:00 EDT, [facility], 183, cm, 05/15/22 8:13:00 EST, Height, 137, [...] Care Team Personnel Name: Sukhdeep Fleming Position: [facility] PCO Associate Professional Member Role: PCP Address: Address: [address] [place] [address]- Care Team Related Persons Name: MS GAYLE Address: home [address] [address]
--- OUTSIDE RECORDS SUMMARY | 2023-10-16 09:36 | XMS_ITS | Continuity of Care Document ---
Author Organization [facility] [employer] [employer] [facility] Address [address] [place] [address]- Care Team Providers Care Developer Analyst Name Role Phone Chapin Be MD Primary Care Physician [phone] Encounter [facility] [id number] Date(s): 06/08/23 - 06/15/23 [facility] [address] [address]- Encounter Diagnosis Major depressive disorder, recurrent(Discharge Diagnosis) - 06/08/23 PTSD (post-traumatic stress disorder)(Discharge Diagnosis) - 06/08/23 ADHD(Discharge Diagnosis) - 06/08/23 PAVAN (obstructive sleep apnea)(Discharge Diagnosis) - 06/08/23 Attending Physician: Chapin Be MD Allergies, Adverse Reactions, Alerts No Known Allergies Immunizations Given and Recorded Vaccine Date Status Refusal Reason tetanus/diphtheria/pertussis, acel(Tdap) 10/13/21 Recorded Medications FLUoxetine 20 mg oral capsule 20 mg, 1, capsule, By Mouth, Daily, # 90 capsule, Refills 1, Tot. Refills 1, Maintenance, 06/08/23 9:30:00 EST, Route to Pharmacy Electronically, [facility]/pharmacy #[id number], Partial fill upon patient requestif the prescription is for a schedule II opioid jamal... Start Date: 06/08/23 Stop Date: 12/05/23 Status: Ordered hydrOXYzine hydrochloride 25 mg oral tablet 1 tablet = 25 mg, By Mouth, 3 times a day, PRN Anxiety attacks, # 90 tablet, 3 Refills, Maintenance, 02/15/23 9:45:00 EDT, [facility]/pharmacy #[id number], 183, cm, 02/16/23 8:39:00 EDT, Height, 137, kg, :21:00 EDT, Dry Weight Start Date: 02/15/23 Stop Date: 06/15/23 Status: Ordered Problem List Condition Confirmation Course Effective Dates Status Health St atus Informant PTSD (post-traumatic stress disorder) Confirmed Active Severe obesity Confirmed Active Diagnosis Diagnosis Type Effective Dates Health Status Clinical Service Informant Major depressive disorder, recurrent Discharge Diagnosis 06/08/23 PTSD (post-traumatic stress disorder) Discharge Diagnosis 06/08/23 ADHD Discharge Diagnosis 06/08/23 PAVAN (obstructive sleep apnea) Discharge Diagnosis 06/08/23 Vital Signs Most recent to oldest [Reference Range]: 1 Height 183 cm (06/08/23 8:52 AM) Social History Social History Type Response Tobacco Use: smoked 3 cigarr ettes in entire life. Sex Note * Yocasta Marsh: PERFORM, SIGN, VERIFY Event Display: Patient Education/Instruction Authored Date: [id number] [facility] *BMP Quab Adlt Med Bltn Clinical Summary Name SORAYA DELANEY Age 33 Years 1990 PCP Chapin Be MD PCP Visit Date 06/08/2023 08:51:00 Additional Instructions: Scheduled Appointments?? Future Appointments ?No Future Appointments Scheduled Follow-Up Instructions ?? Diagnosis Attention-deficit hyperactivity disorder, unspecified type; Major depressive disorder, recurrent, unspecified; Post-traumatic stress disorder, unspecified; Obstructive sleep apnea (adult) (pediatric) Medications: Please continue your medications until treatment is completed or stopped by your provider. Discuss any questions related to medications with your provider. Medications to Continue Taking That Have Changed [facility]/pharmacy #[id number], [address] [place] [phone], [phone] - Fluoxetine (FLUoxetine 20 mg oral capsule) 1 capsule Oral Daily for 90 Days. Refills: 1. Next Dose: These medications were not printed or sent to your pharmacy - HydrOXYzine (hydrOXYzine hydrochloride 25 mg oral tablet) 1 tab(s) Oral 3 times a day as needed Anxiety attacks for 30 Days. Refills: 3. Next Dose: Allergy Info:?? NKA Medications Given This Visit Future Orders ?No future orders Vital Signs Height 183 cm Weight BMI Blood Pressure / Temperature Pulse Rate Respiratory Rate 02 Sat Mode of Delivery / You can now view a summary of your hospital visit from the comfort of your home through a free online portal called [employer]. [employer] is a website that allows you to securely view your medical information including discharge summary, medications and follow-up visits. ??You can alsosend a secure electronic message to your doctor???s office to request appointments, renew medications or just ask a question. You can enroll at [email or web address] or register during your next office visit. [...] primary care provider, you may find a [facility] provider by calling [facility] [employer] Link at [phone]. [facility], in keeping with [facility] guidance, no longer requires face masks for [...] Team Personnel Name: Chapin Be MD Position: [facility] Physician - Primary Care Member Role: PCP Address: Address: [address] [place] [address]- Care Team Related Persons Name: MS GAYLE Address: [address] [address]
--- OUTSIDE RECORDS SUMMARY | 2023-10-16 09:36 | XMS_ITS | Continuity of Care Document ---
Author Organization [facility] [employer] [facility] Address [address] [place] [address]- Care Team Providers Care Locomotive Pipe Fitter Name Role Phone Chapin Be MD Primary Care Physician Encounter [facility] Date(s): 07/30/23 - 08/29/23 [facility] [employer] [facility] [address] [place] [address]- Allergies, Adverse Reactions, Alerts No Known Allergies Immunizations Given and Recorded Vaccine Date Status Refusal Reason tetanus/diphtheria/pertussis, acel(Tdap) 10/13/21 Recorded Medications FLUoxetine 20 mg oral capsule 20 mg, 1, capsule, By Mouth, Daily, # 90 capsule, Refills 1, Tot. Refills 1, Maintenance, 06/08/23 9:30:00 EST, Route to Pharmacy Electronically, [facility]/pharmacy #[id number], Partial fill upon patient requestif the prescription is for a schedule II opioid jamal... Start Date: 06/08/23 Stop Date: 12/05/23 Status: Ordered hydrOXYzine hydrochloride 25 mg oral tablet 1 tablet = 25 mg, By Mouth, 3 times a day, PRN Anxiety attacks, # 90 tablet, 3 Refills, Maintenance, 02/15/23 9:45:00 EDT, [facility]/pharmacy #[id number], 183, cm, 02/16/23 8:39:00 EDT, [...] Team Personnel Name: Chapin Be MD Position: [facility] Physician - Primary Care Member Role: PCP Address: Address: [address] [place] [address] Medicine, [place] [address]- Care Team Related Persons Name: MS GAYLE Address: downs [address] [address]
--- OUTSIDE RECORDS SUMMARY | 2023-10-16 09:36 | XMS_ITS | Continuity of Care Document ---
Author Organization [facility] Address [address] [place] [address]- Care Team Providers Care Mechanical Shovel Operator Name Role Phone Sukhdeep Fleming Primary Care Physician Encounter [facility] Date(s): 10/03/21 - 11/02/21 [facility] [address] [place], [place] [phone]- [place] Allergies, Adverse Reactions, Alerts No Known Allergies Medications buPROPion 150 mg/24 hours (XL) oral tablet, extended release 1 tablet = 150 mg, By Mouth, Every 24 hours, do not crush or chew, # 30 tablet, 0 Refills, Maintenance, 10/22/21 10:04:00 EDT, ER Tablet, [id number], Partial fill upon patient request if the prescription is for a schedule II opioid drug., 1 ta... Start Date: 10/22/21 Stop Date: 11/21/21 Status: Ordered Problem List Condition Effective Dates Status Health Status Inform ant Severe obesity(Confirmed) Active Social History Social History Type Response Tobacco Use: smoked 3 cigarr ettes in entire life. Sex
--- OUTSIDE RECORDS SUMMARY | 2023-10-16 09:37 | XMS_ITS | Continuity of Care Document ---
Author Organization [facility] Address [address] [place] [address]- Care Team Providers Care Correctional Substance Abuse Counselor Name Role Phone Sukhdeep Fleming Primary Care Physician En[facility] Date(s): 01/21/22 - 02/20/22 [facility] [address] [place] [address] Attending Physician: Momo Amaya Admitting Physician: Admtr, Momo Referring Physician: Admtr, ArRamakrishna Allergies, Adverse Reactions, Alerts No Known Allergies Medications buPROPion 150 mg/24 hours (XL) oral tablet, extended release 1 tablet = 150 mg, By Mouth, Every 24 hours, do not crush or chew, # 30 tablet, 0 Refills, Maintenance, 10/22/21 10:04:00 EDT, ER Tablet, [id number], Partial fill upon patient request if the prescription is for a schedule II opioid drug., 1 ta... Start Date: 10/22/21 Stop Date: 11/21/21 Status: Ordered Problem List Condition Confirmation Course Effective Dates Status Health atus Informant Severe obesity Confirmed Active Social History Social History Type Response Tobacco Use: smoked 3 cigarr ettes in entire life. Sex Patient Care team information Personnel Name: Sukhdeep Fleming Address: Address: [address] [place] [address] [facility] [place], [place] [address]
--- OUTSIDE RECORDS SUMMARY | 2023-10-16 09:37 | XMS_ITS | Continuity of Care Document ---
Author Organization [facility] Address [address] [place] [address]- Care Team Providers Care Business Intelligence Engineer Name Role Phone Sukhdeep Fleming Primary Care Physician [facility] [id number] Date(s): 04/22/22 - 08/20/22 [facility] [address] [place] [address]- Encounter Diagnosis Physical exam(Discharge Diagnosis) - 07/21/22 Attending Physician: Sukhdeep Fleming Allergies, Adverse Reactions, Alerts No Known Allergies Immunizations Given and Recorded Vaccine Date Status Refusal Reason tetanus/diphtheria/pertussis, acel(Tdap) 10/13/21 Recorded Medications FLUoxetine 20 mg oral capsule 1, capsule, By Mouth, Daily, STOP WELLBUTRIN BEFORE STARTING THIS MED. INS MAX 34, # 34 capsule, Refills 1, Maintenance, 06/23/22 14:09:00 EST, Route to Pharmacy Electronically, [facility], 183,cm, 05/15/22 8:13:00 EST, Height, 137, kg, 09/23/21... Start Date: 06/23/22 Stop Date: 08/02/22 Status: Ordered hydrOXYzine hydrochloride 25 mg oral tablet 1 tablet, By Mouth, 3 times a day, PRN NEEDED FOR ANXIETY FOR, # 90 tablet, 0 Refills, Maintenance, 07/28/22 7:24:00 EDT, [id number], 183, cm, 05/15/22 8:13:00 EST, Height, 137, kg, 09/23/21 0:21:00 EDT, Dry Weight Start Date: 07/28/22 Stop Date: 08/27/22 Status: Ordered Problem List Condition Confirmation Course Effective Dates Status Health St atus Informant PTSD (post-traumatic stress disorder) Confirmed Active Moderate recurrent major depression Confirmed Active Severe obesity Confirmed Active Severe recurrent major depression Confirmed Active Diagnosis Diagnosis Type Effective Dates Health Status Cl inical Service Informant Physical exam Discharge Diagnosis 07/21/22 Social History Social History Type Response Tobacco Use: smoked 3 cigarr ettes in entire life. Sex Patient Care team information Care Team Personnel Name: Sukhdeep Fleming Position: [facility] PCO Associate Professional Member Role: PCP Address: Address: [address] [place] [address] [place] [address]- Care Team Related Persons Name: MS GAYLE Address: home [address] [address]
--- OUTSIDE RECORDS SUMMARY | 2023-10-16 09:37 | XMS_ITS | Continuity of Care Document ---
Author Organization [facility] Address [address] [place] [address]- Care Team Providers Care Grocery Bagger Name Role Phone Sukhdeep Fleming Primary Care Physician [id number] Date(s): 06/09/22 - 07/09/22 [facility] [address] [place] [address] [place] Allergies, Adverse Reactions, Alerts No Known Allergies Immunizations Given and Recorded Vaccine Date Status Refusal Reason tetanus/diphtheria/pertussis, acel(Tdap) 10/13/21 Recorded Medications FLUoxetine 20 mg oral capsule 1, capsule, By Mouth, Daily, STOP WELLBUTRIN BEFORE STARTING THIS MED. INS MAX 34, # 34 capsule, Refills 1, Maintenance, 06/23/22 14:09:00 EST, Route to Pharmacy Electronically, [facility], 183,cm, 05/15/22 8:13:00 EST, Height, 137, kg, 09/23/21... Start Date: 06/23/22 Stop Date: 08/02/22 Status: Ordered hydrOXYzine hydrochloride 25 mg oral tablet 1 tablet, By Mouth, 3 times a day, PRN NEEDED FOR ANXIETY FOR, # 90 tablet, 0 Refills, Maintenance, 06/20/22 8:03:00 EST, [facility], 183, cm, 05/15/22 8:13:00 EST, Height, 137, kg, 09/23/21 0:21:00 EDT, Dry Weight Start Date: 06/20/22 Stop Date: 07/20/22 Status: Ordered Problem List Condition Confirmation Course Effective Dates Status Health St atus Informant PTSD (post-traumatic stress disorder) Confirmed Active Moderate recurrent major depression Confirmed Active Severe obesity Confirmed Active Severe recurrent major depression Confirmed Active Social History Social History Type Response Tobacco Use: smoked 3 cigarr ettes in entire life. Sex Patient Care team information Care Team Personnel Name: Sukhdeep Fleming Position: [facility] PCO Associate Professional Member Role: PCP Address: Address: [address] [place] [address]- Care Team Related Persons Name: MS GAYLE Address: home [address] [address]
--- OUTSIDE RECORDS SUMMARY | 2023-10-16 09:37 | XMS_ITS | Continuity of Care Document ---
Author Organization [facility] Address [address] [place] [phone]- Care Team Providers Care Prenatal Genetic Counselor Name Role Phone Sukhdeep Fleming Primary Care Physician Encounter [facility] NBR [id number] Date(s): 05/07/22 - 05/14/22 [facility] [address] [place] [address]- Encounter Diagnosis Mild depression(Discharge Diagnosis) - 05/07/22 Depression(Discharge Diagnosis) - 05/07/22 Attending Physician: Not on Staff, Attending MD Referring Physician: Sukhdeep Fleming Allergies, Adverse Reactions, Alerts No Known Allergies Immunizations Given and Recorded Vaccine Date Status Refusal Reason tetanus/diphtheria/pertussis, acel(Tdap) 10/13/21 Recorded Medications buPROPion 150 mg/24 hours (XL) oral tablet, extended release 1 tablet = 150 mg, By Mouth, Every 24 hours, do not crush or chew, # 30 tablet, 1 Refills, Maintenance, 05/07/22 12:51:00 EST, ER Tablet, [id number], Partial fill upon patient request if the prescription is for a schedule II opioid drug., 1 ta... Start Date: 05/07/22 Stop Date: 07/06/22 Status: Ordered Problem List Condition Confirmation Course Effective Dates Status Health St atus Informant Depression Confirmed Active Severe obesity Confirmed Active Diagnosis Diagnosis Type Effective Dates Health Status inical Service Informant Mild depression Discharge Diagnosis 05/07/22 Non-Specified Depression Discharge Diagnosis 05/07/22 Vital Signs Most recent to oldest [Reference Range]: 1 Height 183 cm (05/07/22 12:34 PM) Social History Social History Type Response Tobacco Use: smoked 3 cigarr ettes in entire life. Sex Note * Sabi Rose MA: PERFORM, SIGN, VERIFY Event Display: Patient Education/Instruction Authored Date: [id number] [facility] *BMP Quab Adlt Med Bltn Clinical Summary Name SORAYA DELANEY Age 31 Years 1990 PCP Sukhdeep Fleming PCP Visit Date 05/07/2022 12:32:00 Additional Instructions: Scheduled Appointments?? Future Appointments ?*[facility]ult ?[address]??[place],??[place],??[address] ?Phone:??--?Fax:??-- ?Appt. Date:??05/30/2022?9:45 AM ?Scheduled Provider:??Zulema GARAY, Afshan Edmonds ?*BMP??Quab??Adlt??Med??Bltn ?[address]??[facility],[facility] ?Phone:??--?Fax:??-- ?Appt. Date:??07/21/2022?9:40 AM ?Scheduled Provider:??Sukhdeep Fleming Follow-Up Instructions ?? Diagnosis Depression, unspecified; Depression, unspecified Medications: Please continue your medications until treatment is completed or stopped by your provider. Discuss any questions related to medications with your provider. Medications to Continue with No Changes [facility] #[id number], [address] [place] [phone], [phone] BuPROpion (buPROPion 150 mg/24 hours (XL) oral tablet, extended release) 1 tab(s) Oral every 24 hours for 30 Days. do not crush or chew. Refills: 1. Next Dose: Allergy Info:?? NKA Medications Given This Visit Future Orders ?No future orders Vital Signs Height 183 cm Weight BMI Blood Pressure / Temperature Pulse Rate Respiratory Rate 02 Sat Mode of Delivery / You can now view a summary of your hospital visit from the comfort of your home through a free online portal called [employer]. [employer] is a website that allows you to securely view your medical information including discharge summary, medications and follow-up visits. ??You can alsosend a secure electronic message to your doctor???s office to request appointments, renew medications or just ask a question. You can enroll at [email or web address] or register during your next office visit. [...] primary care provider, you may find a [facility] provider by calling [facility] [employer] Link at [phone]. For information about the plan of care [...] Care Team Personnel Name: Sukhdeep Fleming Position: [facility] PCO Associate Professional Member Role: PCP Address: Address: [address] [place] [phone]- Care Team Related Persons Name: MS GAYLE Address: home [address] [address]
--- OUTSIDE RECORDS SUMMARY | 2023-10-16 09:37 | XMS_ITS | Continuity of Care Document ---
Author Organization [facility] Address [address] [place] [address]- Care Team Providers Care Early Childhood Educator Aide Name Role Phone Sukhdeep Fleming Primary Care Physician Encounter [facility] NBR [id number] Date(s): 05/07/22 - 06/06/22 [facility] [address] [place] [address]- [place] Allergies, Adverse Reactions, Alerts No Known Allergies Immunizations Given and Recorded Vaccine Date Status Refusal Reason tetanus/diphtheria/pertussis, acel(Tdap) 10/13/21 Recorded Medications hydrOXYzine hydrochloride 25 mg oral tablet 1 tablet = 25 mg, By Mouth, 3 times a day, PRN for anxiety, for 30 days, # 90 tablet, 0 Refills, Acute 06/15/22 9:32:00 EST, 05/16/22 9:32:00 EST, Tablet, [id number], please fill as generic, 183, cm, 05/15/22 8:13:00 EST, Height, 137, kg, 09/08... Start Date: 05/16/22 Stop Date: 06/15/22 Status: Ordered PROzac 20 mg oral capsule 20 mg, 1, capsule, By Mouth, Daily, discontinue wellbutrin before starting this medication, # 40 capsule, Refills 0, Tot. Refills 0, Maintenance, 05/16/22 9:32:00 EST, Route to Pharmacy Electronically, [id number], Please fill as generic, 183,... Start Date: 05/16/22 Stop Date: 06/25/22 Status: Ordered Problem List Condition Confirmation Course Effective Dates Status Health St atus Informant PTSD (post-traumatic stress disorder) Confirmed Active Moderate recurrent major depression Confirmed Active Severe obesity Confirmed Active Severe recurrent major depression Confirmed Active Social History Social History Type Response Tobacco Use: smoked 3 cigarr ettes in entire life. Sex Patient Care team information Care Team Personnel Name: Sukhdeep Fleming Position: [facility] PCO Associate Professional Member Role: PCP Address: Address: [address] [place] [address]- Care Team Related Persons Name: MS GAYLE Address: home [address] [address]
--- OUTSIDE RECORDS SUMMARY | 2023-10-16 09:37 | XMS_ITS | Continuity of Care Document ---
Author Organization [facility] Address [address] [place] [address]- Care Team Providers Care Statistical Assistant Name Role Phone Sukhdeep Fleming Primary Care Physician Encounter [facility] Date(s): 05/22/22 - 06/21/22 [facility] [address] [place] [address]- Allergies, Adverse Reactions, Alerts No Known Allergies Immunizations Given and Recorded Vaccine Date Status Refusal Reason tetanus/diphtheria/pertussis, acel(Tdap) 10/13/21 Recorded Medications hydrOXYzine hydrochloride 25 mg oral tablet 1 tablet, By Mouth, 3 times a day, PRN NEEDED FOR ANXIETY FOR, # 90 tablet, 0 Refills, Maintenance, 06/20/22 8:03:00 EST, [facility] [id number], 183, cm, 05/15/22 8:13:00 EST, Height, 137, kg, 09/23/21 0:21:00 EDT, Dry Weight Start Date: 06/20/22 Stop Date: 07/20/22 Status: Ordered PROzac 20 mg oral capsule 20 mg, 1, capsule, By Mouth, Daily, discontinue wellbutrin before starting this medication, # 40 capsule, Refills 0, Tot. Refills 0, Maintenance, 05/16/22 9:32:00 EST, Route to Pharmacy Electronically, [facility] #[id number], Please fill as generic, 183,... Start Date: [...] Care Team Personnel Name: Sukhdeep Fleming Position: [facility] PCO Associate Professional Member Role: PCP Address: Address: [address] [place] [address]- Care Team Related Persons Name: MS GAYLE Address: home [address] [address]
--- OUTSIDE RECORDS SUMMARY | 2023-10-16 09:37 | XMS_ITS | Continuity of Care Document ---
Author Organization [facility] Address [address] [place] [address]- Care Team Providers Care Emergency Dispatcher Name Role Phone Sukhdeep Fleming Primary Care Physician Encounter [facility] NBR [id number] Date(s): 06/19/22 - 07/19/22 [facility] [address] [place] [address]- Attending Physician: Momo Amaya Admitting Physician: Momo [...] 06/23/22 14:09:00 EST, Route to Pharmacy Electronically, [id number], 183,cm, 05/15/22 8:13:00 EST, Height, 137, kg, 09/23/21... Start Date: 06/23/22 Stop Date: 08/02/22 Status: Ordered hydrOXYzine hydrochloride 25 mg oral tablet 1 tablet, By Mouth, 3 times a day, PRN NEEDED FOR ANXIETY FOR, # 90 tablet, 0 Refills, Maintenance, 06/20/22 8:03:00 EST, [facility] [id number], 183, cm, 05/15/22 8:13:00 EST, Height, 137, [...] Care Team Personnel Name: Sukhdeep Fleming Position: [facility] PCO Associate Professional Member Role: PCP Address: Address: [address] [place], [place] [address] [place] [address]- Care Team Related Persons Name: MS GAYLE Address: [place] [address] [address]
--- OUTSIDE RECORDS SUMMARY | 2023-10-16 09:37 | XMS_ITS | Continuity of Care Document ---
Author Organization [facility] Address [address] [place] [address]- Care Team Providers Care Paste Plant Supervisor Name Role Phone Sukhdeep Fleming Primary Care Physician Encounter [facility] NBR [id number] Date(s): 05/15/22 - 07/19/22 [facility] [address] [place] [address]- Encounter Diagnosis PTSD (post-traumatic stress disorder)(Discharge Diagnosis) - 05/16/22 Moderate recurrent major depression(Discharge Diagnosis) - 05/16/22 Attending Physician: Sukhdeep Fleming Allergies, Adverse Reactions, Alerts No Known Allergies Immunizations Given and Recorded Vaccine Date Status Refusal Reason tetanus/diphtheria/pertussis, acel(Tdap) 10/13/21 Recorded Medications FLUoxetine 20 mg oral capsule 1, capsule, By Mouth, Daily, STOP WELLBUTRIN BEFORE STARTING THIS MED. INS MAX 34, # 34 capsule, Refills 1, Maintenance, 06/23/22 14:09:00 EST, Route to Pharmacy Electronically, [facility] 07201, 183,cm, 05/15/22 8:13:00 EST, Height, 137, kg, 09/23/21... Start Date: 06/23/22 Stop Date: 08/02/22 Status: Ordered hydrOXYzine hydrochloride 25 mg oral tablet 1 tablet, By Mouth, 3 times a day, PRN NEEDED FOR ANXIETY FOR, # 90 tablet, 0 Refills, Maintenance, 06/20/22 8:03:00 EST, [facility] 92304, 183, cm, 05/15/22 8:13:00 EST, Height, 137, [...] Effective Dates Health Status Clinical Service Informant PTSD (post-traumatic stress disorder) Discharge Diagnosis 05/16/22 Non-Specified Moderate recurrent major depression Discharge Diagnosis 05/16/22 Non-Specified Social History Social History Type Response Tobacco Use: smoked 3 cigarr ettes in entire life. Sex Patient Care team information Care Team Personnel Name: Sukhdeep Fleming Position: [facility] PCO Associate Professional Member Role: PCP Address: Address: [address] [place] [address] [place] [address]- Care Team Related Persons Name: MS GAYLE Address: home [address] [address]
--- OUTSIDE RECORDS SUMMARY | 2023-10-16 09:37 | XMS_ITS | Continuity of Care Document ---
Author Organization [facility] Address [address] [place] [address]- Care Team Providers Care Watershed Manager Name Role Phone Sukhdeep Fleming Primary Care Physician Encounter [facility] NBR [id number] Date(s): 10/22/21 - 10/29/21 [facility] Adult [address] [address]- Encounter Diagnosis Severe obesity(Discharge Diagnosis) - 10/22/21 Sleeping difficulty(Discharge Diagnosis) - 10/22/21 Mild depression(Discharge Diagnosis) - 10/22/21 Edema of both lower legs(Discharge Diagnosis) - 10/22/21 Encounter to establish care(Discharge Diagnosis) - 10/22/21 Attending Physician: Laurel Sanon MD Referring Physician: Sukhdeep Fleming Allergies, Adverse Reactions, Alerts No Known Allergies Medications buPROPion 150 mg/24 hours (XL) oral tablet, extended release 1 tablet = 150 mg, By Mouth, Every 24 hours, do not crush or chew, # 30 tablet, 0 Refills, Maintenance, 10/22/21 10:04:00 EDT, ER Tablet, [facility]/pharmacy #[id number], Partial fill upon patient request if the prescription is for a schedule II opioid drug., 1 ta... Start Date: 10/22/21 Stop Date: 11/21/21 Status: Ordered Problem List Condition Effective Dates Status Health Status Inform ant Severe obesity(Confirmed) Active Diagnosis Diagnosis Type Effective Dates Health Status Clinical Service Informant Severe obesity Discharge Diagnosis 10/22/21 Sleeping difficulty Discharge Diagnosis 10/22/21 Mild depression Discharge Diagnosis 10/22/21 Edema of both lower legs Discharge Diagnosis 10/22/21 Encounter to establish care Discharge Diagnosis 10/22/21 Vital Signs Most recent to oldest [Reference Range]: 1 Height 183 cm (10/22/21 9:09 AM) Weight 136.5 kg (10/22/21 9:09 AM) Oxygen Saturation [94-100 %] 98 % (10/22/21 9:09 AM) Pulse Rate [55-90 bpm] 88 bpm (10/22/21 9:09 AM) Body Mass Index [18.5-24.99] 40.76 *>HHI* (10/22/21 9:09 AM) Blood Pressure [90-138/55-84 mm Hg] 130/ 70mm Hg (10/22/21 9:09 AM) Respiratory Rate [16-30 br/min] 17 br/mi n (10/22/21 9:09 AM) Temperature [96.8-100.4 DegF] 96.9 DegF (10/22/21 9:09 AM) Mode of Delivery (Oxygen) Room air (10/22/21 9:09 AM) Blood pressure sites Arm, left (10/22/21 9:09 AM) Temperature Route Temporal (10/22/21 9:09 AM) Weight Obtained Via Standing scale (10/22/21 9:09 AM) Social History Social History Type Response Tobacco Use: smoked 3 cigarr ettes in entire life. Sex
--- OUTSIDE RECORDS SUMMARY | 2023-10-16 09:37 | XMS_ITS | Continuity of Care Document ---
Author Organization [facility] Address [address] [place], [place] [id number]- Care Team Providers Care Retail Sales Representative Name Role Phone Chapin Be MD Primary Care Physician Encounter [facility] Date(s): 08/26/23 - 09/02/23 [facility] [address] [place] [phone]- [place] Encounter Diagnosis Change in bowel habits(Discharge Diagnosis) - 08/26/23 Attending Physician: Missy TRUCK SERVICE TECHNICIAN, Sharon Sosa Allergies, Adverse Reactions, Alerts No Known Allergies Immunizations Given and Recorded Vaccine Date Status Refusal Reason tetanus/diphtheria/pertussis, acel(Tdap) 10/13/21 Recorded Medications FLUoxetine 20 mg oral capsule 20 mg, 1, capsule, By Mouth, Daily, # 90 capsule, Refills 1, Tot. Refills 1, Maintenance, 06/08/23 9:30:00 EST, Route to Pharmacy Electronically, [facility] #[id number], Partial fill upon patient requestif [...] Dates Health Status Cl inical Service Informant Change in bowel habits Discharge Diagnosis 08/26/23 Vital Signs Most recent to oldest [Reference Range]: 1 2 Height 183 cm (08/26/23 4:10 PM) 183 cm (08/26/23 3:51 PM) Oxygen Saturation [94-100 %] 99 % (08/26/23 3:51 PM) Pulse Rate [55-90 bpm] 85 bpm (08/26/23 3:51 PM) Blood Pressure [90-138/55-84 mm Hg] 110/ 68mm Hg (08/26/23 4:10 PM) 140/80mm Hg *H* (08/26/23 3:51 PM) Mode of Delivery (Oxygen) Room air (08/26/23 3:51 PM) Blood pressure sites Arm, left (08/26/23 4:10 PM) Arm, left (08/26/23 3:51 PM) Weight Obtained Via Standing scale (08/26/23 3:51 PM) Dry Weight Obtained Via Standing scale (08/26/23 3:51 PM) Social History Social History Type Response Tobacco Use: smoked 3 cigarr ettes in entire life. Sex Note * Yocasta Marsh: PERFORM, SIGN, VERIFY Event Display: Patient Education/Instruction Authored Date: [id number] [facility] *BMP Quab Adlt Med Bltn Clinical Summary Name SORAYA DELANEY Age 33 Years 1990 PCP Chapin Be MD PCP Visit Date 08/26/2023 15:45:00 Additional Instructions: Scheduled Appointments?? Future Appointments ?No Future Appointments Scheduled Follow-Up Instructions ?? With: Address: When: Refer to GI. Diagnosis Change in bowel habit Medications: Please continue your medications until treatment is completed or stopped by your provider. Discuss any questions related to medications with your provider. Medications to Continue with No Changes These medications were not printed or sent [...] This Visit Future Orders ?No future orders Future Orders ?No future orders Vital Signs Height 183 cm Weight BMI Blood Pressure 110 mm Hg/68 mm Hg Temperature Pulse Rate 85 bpm Respiratory Rate 02 Sat Mode of Delivery 99 %/Room air You can now view a summary of your hospital visit from the comfort of your home through a free online portal called [employer]. [employer] is a website that allows you to securely view your medical information including discharge summary, medications and follow-up visits. ??You can alsosend a secure electronic message to your doctor???s office to request appointments, renew medications or just ask a question. You can enroll at [email or web address] or register during your next office [...] primary care provider, you may find a [facility] provider by calling [facility] [employer] Link at [phone]. [facility], in keeping with [facility] guidance, no longer requires face masks for [...] format to support your individualized medical care. What is IBS? People who have irritable bowel syndrome (IBS) have digestive tracts that react abnormally to certain substances or to stress. This leads to symptoms like cramps, gas, bloating, pain, constipation, and diarrhea. Sometimes called ???spastic colon,?? IBS is a common condition that is not a disease, but rather a group of symptoms that occur together. Muscle contraction moves food through the digestive tract. IBS ??? a motility problem The muscle movement that passes food through the digestive tract is called motility. When you have IBS, the normal motility of the digestive tract (especially the colon) is disrupted. Motility may speed up, slow down, or become irregular. If stool passes too quickly through the colon, not enough water is absorbed from it. Loose, watery stools (diarrhea) can result. If stool passes through the colon too slowly, too much water is absorbed and the stool becomes hard and dry (constipation). Also, stool and gas may back up and cause painful pressure and cramping. What causes IBS? Smoking, eating certain foods, or drinking alcohol or caffeinated drinks can cause symptoms of IBS. ??? Stress or anxiety can contribute to the motility problems that cause IBS. ??? Although no one knows for sure, IBS may be caused by a problem with the nerves or muscles in your digestive tract. ??? There is also some evidence that certain bacteria in the small intestine and colon may cause IBS. What you can do ??? Certain medications may help regulate the working of your digestive tract. Your health care provider may prescribe one or more for you. ??? Medication can???t cure IBS, but??it may help manage the symptoms. ??? Because some medications may make IBS worse, don???t take any medication, especially laxatives,unless your health care provider prescribes it for you. ??? Your health care provider may suggest some lifestyle changes to help control your IBS. Two of the most important are changing your diet and managing stress. ?? 8624-7655 [employer]. [address] [place] [address]. All rights reserved. This information is not intended as a substitute for professional medical care. Always follow your healthcare professional's instructions. Diet and Lifestyle Tips for IBS Your health care associate may suggest some lifestyle changes to help control your IBS. Changingyour diet and managing stress are two of the most important. Follow your doctor???s instructions and try some of the suggestions below. Change Your Diet Your diet may be an important cause of IBS symptoms. You may want to try the following: ??? Pay attention to what foods bother you, and avoid them. For example, dairy products are hard for some people to digest. ??? Drink 6 to 8 glasses of water a day. ??? Avoid caffeine and tobacco. These are muscle stimulants and can affect the working of your digestive tract. ??? Avoid alcohol, which can irritate your digestive tract and make your symptoms worse. ??? Eat more fiber if constipation is a problem. Fiber makes the stool softer and easier to pass through the colon. Reduce Stress If stress or anxiety contributes to your IBS, learning how to manage stress may help you feel better. Try these tips: ??? Identify the causes of stress in your life. ??? Learn new ways to cope with them. ??? Regular exercise is a great way to relieve stress. It can also help ease constipation. ?? [phone] [employer]. [address] [place] [address]. All rights reserved. This information is not intended as a substitute for professional medical care. Always follow your healthcare professional's instructions. Patient Care team information Care Team Personnel Name: Chapin Be MD Position: [facility] Physician - Primary Care Member Role: PCP Address: Address: [address] [place] [address]- Care Team Related Persons Name: MS GAYLE Address: home [address] [address]
--- OUTSIDE RECORDS SUMMARY | 2023-10-16 09:37 | XMS_ITS | Continuity of Care Document ---
Author Organization [facility] [employer] [facility] Address [address] [place] [address]- Care Team Providers Care Rod Tape Operator Name Role Phone Sukhdeep Flemnig Primary Care Physician Encounter [facility] Date(s): 10/22/21 - 02/20/22 [facility] [address] [place] [address] Attending Physician: Sukhdeep Fleming Allergies, Adverse Reactions, Alerts No Known Allergies Medications buPROPion 150 mg/24 hours (XL) oral tablet, extended release 1 tablet = 150 mg, By Mouth, Every 24 hours, do not crush or chew, # 30 tablet, 0 Refills, Maintenance, 10/22/21 10:04:00 EDT, ER Tablet, [facility]/pharmacy #[id number], Partial fill upon patient request if the prescription is for a schedule II opioid drug., 1 ta... Start Date: 10/22/21 Stop Date: 11/21/21 Status: Ordered Problem List Condition Confirmation Course Effective Dates Status Health St atus Informant Severe obesity Confirmed Active Social History Social History Type Response Tobacco Use: smoked 3 cigarr ettes in entire life. Sex Patient Care team information Personnel Name: Sukhdeep Fleming Address: Address: [address] [place] [address] [facility] [place], [place] [address]
--- OUTSIDE RECORDS SUMMARY | 2023-10-16 09:37 | XMS_ITS | Continuity of Care Document ---
[facility] Organization [facility] Address [address] [place] [address]- Care Team Providers Care Neurology Professor Name Role Phone Sukhdeep Fleming Primary Care Physician Encounter [facility] Date(s): 04/15/22 - 05/15/22 [facility] Adult Medicine [address] [place] [address]- [place] Allergies, Adverse Reactions, Alerts No Known Allergies Immunizations Given and Recorded Vaccine Date Status Refusal Reason tetanus/diphtheria/pertussis, acel(Tdap) 10/13/21 Recorded Medications hydrOXYzine hydrochloride 25 mg oral tablet 1 tablet = 25 mg, By Mouth, 3 times a day, PRN for anxiety, for 30 days, # 90 tablet, 0 Refills, Acute 06/14/22 8:58:00 EST, 05/15/22 8:58:00 EST, Tablet, [id number], Partial fill upon patient request if the prescription is for a schedule II o... Start Date: 05/15/22 Stop Date: 06/14/22 Status: Ordered PROzac 20 mg oral capsule 20 mg, 1, capsule, By Mouth, Daily, discontinue wellbutrin before starting this medication, # 40 capsule, Refills 0, Tot. Refills 0, Maintenance, 05/15/22 8:56:00 EST, Route to Pharmacy Electronically, [id number], Partial fill upon patient req... Start Date: 05/15/22 Stop Date: 06/24/22 Status: Ordered Problem List Condition Confirmation Course Effective Dates Status Health St atus Informant PTSD (post-traumatic stress disorder) Confirmed Active Moderate recurrent major depression Confirmed Active Severe obesity Confirmed Active Severe recurrent major depression Confirmed Active Social History Social History Type Response Tobacco Use: smoked 3 cigarr ettes in entire life. Sex Patient Care team information Care Team Personnel Name: Sukhdeep Fleming Position: [facility] PCO Associate Professional Member Role: PCP Address: Address: [address] [place] [address]- Care Team Related Persons Name: ARAUJO, [place] Address: home [address] [address]
--- OUTSIDE RECORDS SUMMARY | 2023-10-16 09:37 | XMS_ITS | Continuity of Care Document ---
Author Organization [facility] Address [address] [place] [address]- Care Team Providers Care Humanities Division Chair Name Role Phone Chapin Be MD Primary Care Physician Encounter [facility] Date(s): 06/08/23 - 07/08/23 [facility] [address] [address]- Attending Physician: Momo Amaya Admitting Physician: Momo Amaya Referring Physician: AdmtrMomo Allergies, Adverse Reactions, Alerts No Known Allergies Immunizations Given and Recorded Vaccine Date Status Refusal Reason tetanus/diphtheria/pertussis, acel(Tdap) 10/13/21 Recorded Medications FLUoxetine 20 mg oral capsule 20 mg, 1, capsule, By Mouth, Daily, # 90 capsule, Refills 1, Tot. Refills 1, Maintenance, 06/08/23 9:30:00 EST, Route to Pharmacy Electronically, [facility] #[id number], Partial fill upon patient requestif the [...] Primary Care Member Role: PCP Address: Address: [address] [place] [address]- Care Team Related Persons Name: [place] GAYLE Address: home [address] [address]
--- OUTSIDE RECORDS SUMMARY | 2023-10-16 09:37 | XMS_ITS | Continuity of Care Document ---
Author Organization [facility] Address [address] [place] [address]- Care Team Providers Care Crm Marketing Specialist Name Role Phone Chapin Be MD Primary Care Physician Encounter [facility] Date(s): 08/26/23 - 09/25/23 [facility] [address] [place] [address]- Attending Physician: Momo Amaya Admitting Physician: AdmtrMomo Referring Physician: AdmtrMomo Allergies, Adverse Reactions, Alerts No Known Allergies Immunizations Given and Recorded Vaccine Date Status Refusal Reason tetanus/diphtheria/pertussis, acel(Tdap) 10/13/21 Recorded Medications FLUoxetine 20 mg oral capsule 20 mg, 1, capsule, By Mouth, Daily, # 90 capsule, Refills 1, Tot. Refills 1, Maintenance, 06/08/23 9:30:00 EST, Route to Pharmacy Electronically, [facility] #[id number], Partial fill upon patient requestif [...] Team Personnel Name: Chapin Be MD Position: [facility] Physician - Primary Care Member Role: PCP Address: Address: [address] [place] [address]- Care Team Related Persons Name: [place] GAYLE Address: home [address] [address]
--- OUTSIDE RECORDS SUMMARY | 2023-10-16 09:37 | XMS_ITS | Continuity of Care Document ---
Author Organization [email or web address] Address [address] [place] [address]- Care Team Providers Care Box Storage Worker Name Role Phone Sukhdeep Fleming Primary Care Physician Encounter [facility] [id number] Date(s): 05/15/22 - 05/22/22 [email or web address] [address] [address]- Encounter Diagnosis Moderate recurrent major depression(Discharge Diagnosis) - 05/15/22 PTSD (post-traumatic stress disorder)(Discharge Diagnosis) - 05/15/22 Anxiety(Discharge Diagnosis) - 05/15/22 Severe recurrent major depression(Discharge Diagnosis) - 05/15/22 Attending Physician: Sukhdeep Fleming Allergies, Adverse Reactions, [...] 05/16/22 9:32:00 EST, Route to Pharmacy Electronically, [facility]/pharmacy #[id number], Please fill as generic, 183,... Start Date: 05/16/22 Stop Date: 06/25/22 Status: Ordered Problem List Condition Confirmation Course Effective Dates Status Health St atus Informant PTSD (post-traumatic stress disorder) Confirmed Active Moderate recurrent major depression Confirmed Active Severe obesity Confirmed Active Severe recurrent major depression Confirmed Active Diagnosis Diagnosis Type Effective Dates Health Status Clinical Service Informant Moderate recurrent major depression Discharge Diagnosis 05/15/22 PTSD (post-traumatic stress disorder) Discharge Diagnosis 05/15/22 Anxiety Discharge Diagnosis 05/15/22 Severe recurrent major depression Discharge Diagnosis 05/15/22 Vital Signs Most recent to oldest [Reference Range]: 1 Height 183 cm (05/15/22 8:13 AM) Social History Social History Type Response Tobacco Use: smoked 3 cigarr ettes in entire life. Sex Note * Ella Florian: PERFORM, SIGN, VERIFY Event Display: Patient Education/Instruction Authored Date: [id number] [facility] *BMP Quab Adlt Med Bltn Clinical Summary Name SORAYA DELANEY Age 32 Years 1990 PCP Sukhdeep Fleming PCP Visit Date 05/15/2022 08:13:00 Additional Instructions: Scheduled Appointments?? Future Appointments ?*BMP??Quab??Adlt??Med??Bltn ?[address],??[place],??[address] ?Phone:??--?Fax:??-- ?Appt. Date:??06/19/2022?8:40 AM ?Scheduled Provider:??Sukhdeep Fleming ?*BMP??Quab??Adlt??Med??Bltn ?[address],??[place],??[address] ?Phone:??--?Fax:??-- ?Appt. Date:??07/21/2022?9:40 AM ?Scheduled Provider:??John HOLLAND, Sukhdeep Araya Follow-Up Instructions ?? Diagnosis Major depressive disorder, recurrent severe without psychotic features; Anxiety disorder, unspecified; Major depressive disorder, recurrent, moderate; Post- traumatic stress disorder, unspecified Medications: Please continue your medications until treatment is completed or stopped by your provider. Discuss any questions related to medications with your provider. Medications to Continue with No Changes These medications were not printed or sent to your pharmacy Fluoxetine (PROzac 20 mg oral capsule) 1 capsule Oral Daily for 40 Days. discontinue wellbutrin before starting this medication. Refills: 0. Next Dose: HydrOXYzine (hydrOXYzine hydrochloride 25 mg oral tablet) 1 tab(s) Oral 3 times a day as needed foranxiety for 30 Days. Refills: 0. Next Dose: Allergy Info:?? NKA Medications Given This Visit Future Orders ?No future orders Vital Signs Height 183 cm Weight BMI Blood Pressure / Temperature Pulse Rate Respiratory Rate 02 Sat Mode of Delivery / You can now view a summary of your hospital visit from the comfort of your home through a free online portal called ProfStream. ProfStream is a website that allows you to securely view your medical information including discharge summary, medications and follow-up visits. ??You can alsosend a secure electronic message to your doctor???s office to request appointments, renew medications or just ask a question. You can enroll at [email or web address] or register during your next office [...] primary care provider, you may find a [facility] provider by calling [facility] [employer] [facility] at [phone]. For information about the plan of care [...] Care Team Personnel Name: Sukhdeep Fleming Position: [facility] PCO Associate Professional Member Role: PCP Address: Address: [address] [place] [address] [place] [address]- Care Team Related Persons Name: MS GAYLE Address: [address] [address]
--- OUTSIDE RECORDS SUMMARY | 2023-10-16 09:37 | XMS_ITS | Continuity of Care Document ---
Author Organization [facility] Address [address] [place] [address]- Care Team Providers Care Science Consultant Name Role Phone Sukhdeep Fleming Primary Care Physician Encounter [facility] Date(s): 06/05/22 - 07/05/22 [facility] [address] [place] [address] [place] Allergies, Adverse Reactions, Alerts No Known Allergies Immunizations Given and Recorded Vaccine Date Status Refusal Reason tetanus/diphtheria/pertussis, acel(Tdap) 10/13/21 Recorded Medications FLUoxetine 20 mg oral capsule 1, capsule, By Mouth, Daily, STOP WELLBUTRIN BEFORE STARTING THIS MED. INS MAX 34, # 34 capsule, Refills 1, Maintenance, 06/23/22 14:09:00 EST, Route to Pharmacy Electronically, [id number], 183,cm, 05/15/22 8:13:00 EST, Height, 137, kg, 09/23/21... Start Date: 06/23/22 Stop Date: 08/02/22 Status: Ordered hydrOXYzine hydrochloride 25 mg oral tablet 1 tablet, By Mouth, 3 times a day, PRN NEEDED FOR ANXIETY FOR, # 90 tablet, 0 Refills, Maintenance, 06/20/22 8:03:00 EST, [id number], 183, cm, 05/15/22 8:13:00 EST, Height, 137, [...] Associate Professional Member Role: PCP Address: Address: [address] [place] [address]- Care Team Related Persons Name: MS GAYLE Address: home [address] [address]
--- OUTSIDE RECORDS SUMMARY | 2023-10-16 09:37 | XMS_ITS | Continuity of Care Document ---
Author Organization [facility] Address [address] [place], [place] [phone]- Care Team Providers Care Transfer Man Name Role Phone Sukhdeep Fleming Primary Care Physician Encounter [facility] Date(s): 06/12/22 - 06/19/22 [facility] [address] [place], [place] [id number]- [place] Encounter Diagnosis Hospital discharge follow-up(Discharge Diagnosis) - 06/12/22 Chest pressure(Discharge Diagnosis) - 06/12/22 Elevated liver enzymes(Discharge Diagnosis) - 06/12/22 Attending Physician: Sukhdeep Fleming Allergies, Adverse Reactions, Alerts No Known Allergies Immunizations Given and Recorded Vaccine Date Status Refusal Reason tetanus/diphtheria/pertussis, acel(Tdap) 10/13/21 Recorded Medications PROzac 20 mg oral capsule 20 mg, 1, capsule, By Mouth, Daily, discontinue wellbutrin before starting this medication, # 40 capsule, Refills 0, Tot. Refills 0, Maintenance, 05/16/22 9:32:00 EST, Route to Pharmacy Electronically, [facility]/pharmacy #[id number], Please fill as generic, 183,... Start Date: 05/16/22 Stop Date: 06/25/22 Status: Ordered Problem List Condition Confirmation Course Effective Dates Status Health St atus Informant PTSD (post-traumatic stress disorder) Confirmed Active Moderate recurrent major depression Confirmed Active Severe obesity Confirmed Active Severe recurrent major depression Confirmed Active Diagnosis Diagnosis Type Effective Dates Health Status Cl inical Service Informant Hospital discharge follow-up Discharge Diagnosis 06/12/22 Chest pressure Discharge Diagnosis 06/12/22 Elevated liver enzymes Discharge Diagnosis 06/12/22 Social History Social History Type Response Tobacco Use: smoked 3 cigarr ettes in entire life. Sex Note * Ella Florian: VERIFY, PERFORM, SIGN Event Display: Patient Education/Instruction Authored Date: [id number] [facility] *BMP Quab Adlt Med Bltn Clinical Summary Name SORAYA DELANEY Age 32 Years 1990 PCP Sukhdeep Fleming PCP Visit Date 06/12/2022 09:00:00 Additional Instructions: Scheduled Appointments?? Future Appointments ?*[facility] [address],??[place],??[address] ?Phone:??--?Fax:??-- ?Appt. Date:??06/20/2022?9:00 AM ?Scheduled Provider:??JEFRY Laguna , Francisca Sosa ?*BMP??Quab??Adlt??Med??Bltn ?[address]??[place],??[place],??[address] ?Phone:??--?Fax:??-- ?Appt. Date:??07/21/2022?9:40 AM ?Scheduled Provider:??Sukhdeep Fleming Follow-Up Instructions ?? Diagnosis Encounter for follow-up examination after completed treatment for conditions other than malignant neoplasm; Abnormal levels of other serum enzymes; Other chest pain Medications: Please continue your medications until treatment [...] Orders ?No future orders Vital Signs Height Weight BMI Blood Pressure / Temperature Pulse Rate Respiratory Rate 02 Sat Mode of Delivery / You can now view a summary of your hospital visit from the comfort of your home through a free online portal called iFlexMe. iFlexMe is a website that allows you to securely view your medical information including discharge summary, medications and follow-up visits. ??You can alsosend a secure electronic message to your doctor???s office to request appointments, renew medications or just ask a question. You can enroll at [email or web address] or register during your next office [...] primary care provider, you may find a [facility] provider by calling [facility] [employer] at [phone]. For information about the plan of care [...] Care Team Personnel Name: Sukhdeep Fleming Position: S PCO Associate Professional Member Role: PCP Address: Address: [address] [place], [place] [address] [place] [address]- Care Team Related Persons Name: MS GAYLE Address: home [address] [address]
== END 2023-10-13 05:40 | disposition home or self-care (01) ==
PROVIDERS: Physician Assistant; Emergency Provider Emergency Medicine
DX: R51.9 Headache, unspecified (principal); M54.2 Cervicalgia
CPT/HCPCS: 36415; 70450; 80053; 83690; 85025; 85652; 96372; 99284; J1885